=== PATIENT | female | born 1995 | race Caucasian/White ===

== ENCOUNTER 2016-12-26 22:48 | Emergency (ER) | payer OTHER ==
[~2016-12-26] VITALS: Ht 160 cm; Wt 54.4 kg
[~2016-12-26 22:48] MED LIST: ALBU-136 IH; BECL0.0458 INH; PRON INH
[2016-12-26 22:59] VITALS: BP 120/78
--- NOTE | 2016-12-27 02:00 | NUR ---
Lauren pike in ED - 12/27/16 at 0212 by [facility] PATIENT LEFT WITHOUT BEING SEEN BY DR. Bal. NO FURTHER CARE PROVIDED FOR PATIENT.
--- NOTE | 2016-12-27 02:31 | NUR ---
AMBULATED TO ER 6
[2016-12-27] MEDS ORDERED: ALBUTEROL SULFATE/IPRATROPIU 3 ML SOL IH ONE ×2 (02:40→04:20)
[2016-12-27] MEDS ORDERED: methylPREDNISolone SS 125 MG in WATER STERILE 2 ML IM ONE (02:40)
--- NOTE | 2016-12-27 02:45 | NUR ---
SOLUMEDROL 125 MG IM GIVEN . RT AT BEDSIDE TI GIVE BREATHIN TREATMENT.
--- NOTE | 2016-12-27 03:05 | NUR ---
VERBALIZED IMPROVEMENT OF BREATHING.
--- NOTE | 2016-12-27 04:27 | NUR ---
ANOTHER BREATHING TREATMENT GIVEN BY RT.
[2016-12-27] MEDS ORDERED: IBUPROFEN 800 MG TAB PO ONE (05:00)
[2016-12-27 05:10] VITALS: BP 107/73
--- NOTE | 2016-12-27 05:10 | NUR ---
Patient discharged with v/s stable. Written and verbal after care instructions given and explained. Patient alert, oriented and verbalized understanding of instructions. Ambulatory with steady gait. All questions addressed prior to discharge. ID band removed. Patient advised to follow up with PMD. Rx of Motrin, Prednisone, and Albuterol inhaler and neb solution given. Patient educated on indication of medication including possible reaction and side effects. Opportunity to ask questions provided and answered.
== END 2016-12-27 05:10 | disposition home or self-care (01) ==
LOC: MED 22:48
DX: J45.901 Unspecified asthma with (acute) exacerbation (principal); Z79.899 Other long term (current) drug therapy; Z91.012 Allergy to eggs; Z91.013 Allergy to seafood; Z91.018 Allergy to other foods
CPT/HCPCS: 71010; 94640; 96372; 99284; J2930; J7620

== ENCOUNTER 2017-07-17 23:37 | Emergency (ER) | payer OTHER ==
[~2017-07-17] VITALS: Ht 160 cm; Wt 55.6 kg
[2017-07-17 23:39] VITALS: BP 123/76
--- NOTE | 2017-07-17 23:47 | NUR ---
TO LOBBY A/W BED, AMB, STABLE, ERMD NOTED
--- NOTE | 2017-07-18 00:15 | NUR ---
PT.AMBULATED TO ER [facility]
--- NOTE | 2017-07-18 00:45 | NUR ---
Dr. Rojas evaluating patient.
[2017-07-18] MEDS ORDERED: diphenhydrAMINE 50 MG/ML VIAL IVP ONE (00:50)
[2017-07-18] MEDS ORDERED: NACL 0.9% 1,000 ML IV ONE (00:50)
[2017-07-18] MEDS ORDERED: methylPREDNISolone SS 125 MG/2 ML VIAL IVP ONE (00:50)
--- NOTE | 2017-07-18 01:00 | NUR ---
22Y/F PT. BIB FAMILY TO ED WITH C/O RASH TO FACE AFTER EATING SHRIMP. BENEDRYL GIVEN AT 1800. AAO X4, AMBULATORY WITH STEDAY GAIT. RESPIRATIONS ROOM AIR, EVEN AND UNLABORED. BL LUNGS CLEAR. FACE RASH NOTED. NO C/O S/SX OF DISTRESS AT THIS TIME. VSS, ER MADE AWARE OF PT. STATUS.
--- NOTE | 2017-07-18 01:07 | NUR ---
Patient transferred to bed 11 for further care. RN evaluating patient at bedside.
--- NOTE | 2017-07-18 03:20 | NUR ---
Patient discharged with v/s stable. Written and verbal after care instructions given and explained. Patient alert, oriented and verbalized understanding of instructions. Ambulatory with steady gait. All questions addressed prior to discharge. ID band removed. Patient advised to follow up with PMD. Rx of BENEDRYL 25 MG, MEDROL 4 MG given. Patient educated on indication of medication including possible reaction and side effects. Opportunity to ask questions provided and answered.
[2017-07-18 03:40] VITALS: BP 109/70
== END 2017-07-18 03:20 | disposition home or self-care (01) ==
LOC: MED 23:37
DX: T78.1XXA Other adverse food reactions, not elsewhere classified, initial encounter (principal); X58.XXXA Exposure to other specified factors, initial encounter; J45.909 Unspecified asthma, uncomplicated
CPT/HCPCS: 96361; 96372; 96374; 96375; 99284; J0171; J1200; J2930; J7030

== ENCOUNTER 2019-02-14 00:03 | Emergency (ER) | payer OTHER ==
[~2019-02-14] VITALS: Ht 160 cm; Wt 61.7 kg
[2019-02-14 00:09] VITALS: BP 116/76
--- NOTE | 2019-02-14 00:17 | NUR ---
PT AMBULATED TO LOBBY WITH MOTHER
--- NOTE | 2019-02-14 00:37 | NUR ---
PT AMBULATED TO BED 8 WITH PARENT
--- NOTE | 2019-02-14 00:40 | NUR ---
PT C/O ASTHMA EXACERBATION. PT STATES THAT HER HOME NEB CORD IS BROKEN, AND PT IS OUT OF ALBUTEROL AT HOME. RR EVEN AND UNLABORED. WHEEZES HEARD UPON INSPIRATION. PT IN NO ACUTE DISTRESS AT THIS TIME. MOTHER AT BEDSIDE. VSS. MEDHX: ASTHMA
--- NOTE | 2019-02-14 00:53 | NUR ---
Dr. Bal examining patient.
[2019-02-14] MEDS ORDERED: ALBUTEROL SULFATE/IPRATROPIU 3 ML SOL IH ONE (00:55)
--- NOTE | 2019-02-14 01:04 | NUR ---
RT AT BEDSIDE FOR TX.
--- NOTE | 2019-02-14 01:22 | NUR ---
Patient discharged with v/s stable. Written and verbal after care instructions given and explained. Patient verbalized understanding. Ambulatory with to home. All questions addressed prior to discharge. Advised to follow up with PMD. PT ACCOMPANIED BY MOTHER.
[2019-02-14 01:26] VITALS: BP 116/76
== END 2019-02-14 01:22 | disposition home or self-care (01) ==
LOC: MED 00:03
DX: J45.901 Unspecified asthma with (acute) exacerbation (principal); Z91.013 Allergy to seafood; Z79.899 Other long term (current) drug therapy
CPT/HCPCS: 94640; 99283; J7620

== ENCOUNTER 2019-06-03 18:54 | Emergency (ER) | payer OTHER ==
[~2019-06-03] VITALS: Ht 165.1 cm; Wt 60.8 kg
[2019-06-03 18:55] VITALS: BP 100/66
--- NOTE | 2019-06-03 18:56 | NUR ---
Patient BIBA ALS, transferred to bed 1. RN evaluating patient at bedside.
--- NOTE | 2019-06-03 19:07 | NUR ---
24 Y/O F BIBA FOR SOB. PT HAS ASTHMA, IS OUT OF MEDICATION. PT WAS GIVEN BREATHING TX IN AMBULANCE, OXYGEN LEVEL 100% ROOM AIR. PT LUNG SOUNDS CLEAR THROUGHOUT. PT STATES SHE IS BREATHNIG BETTER, HAS A HOOD 8/10. PT ON MONITOR, POSITIONED HIGH FOWLERS. NKA
--- NOTE | 2019-06-03 19:11 | NUR ---
REPORT RECEIVED FROM SID CHEN.
--- NOTE | 2019-06-03 19:11 | NUR ---
GAVE REPORT TO SID RIVAS FOR CHANGE OF SHIFT.
[2019-06-03] MEDS ORDERED: ALBUTEROL SULFATE/IPRATROPIU 3 ML SOL IH ONE (19:50)
[2019-06-03] MEDS ORDERED: ALBUTEROL 0.083% 2.5 MG/3 ML NEBU INH ONE (19:50)
[2019-06-03] MEDS ORDERED: predniSONE 20 MG TAB PO ONE (19:50)
--- NOTE | 2019-06-03 20:05 | NUR ---
FLU SWAB COLLECTED AND SENT TO LAB. RT. AT BEDSIDE FOR TREATMENT.
[2019-06-03] MEDS ORDERED: cefTRIAXone 1,000 MG in LIDOCAINE MPF 1% 2.1 ML IM ONE (20:40)
[2019-06-03] MEDS ORDERED: LIDOCAINE MPF 1% 5 ML ONE (20:43)
[2019-06-03] MEDS ORDERED: cefTRIAXone 1,000 MG VIAL ONE (20:43)
[2019-06-03 21:30] VITALS: BP 102/79
--- NOTE | 2019-06-03 21:30 | NUR ---
Patient discharged with v/s stable. Written and verbal after care instructions given and explained. Patient alert, oriented and verbalized understanding of instructions. Ambulatory with steady gait. All questions addressed prior to discharge. ID band removed. Patient advised to follow up with PMD. Rx of ALBUTEROL; AZITHROMYCIN; PREDNISONE given. Patient educated on indication of medication including possible reaction and side effects. Opportunity to ask questions provided and answered.
== END 2019-06-03 21:30 | disposition home or self-care (01) ==
LOC: MED 18:54
DX: J45.901 Unspecified asthma with (acute) exacerbation (principal); J18.9 Pneumonia, unspecified organism; Z79.899 Other long term (current) drug therapy
CPT/HCPCS: 71045; 87804; 94640; 96372; 99284; J0696; J2001; J7512; J7613; J7620; Q0092

== ENCOUNTER 2020-05-02 19:59 | Emergency (ER) | payer OTHER ==
[~2020-05-02] VITALS: Ht 165.1 cm; Wt 61.2 kg
[2020-05-02 20:14] VITALS: BP 130/81
--- NOTE | 2020-05-02 20:14 | NUR ---
C/O ASTHMA ATTACK X 1HR. LUNG SOUNDS ARE WHEEZING THROUGHOUT DURING EXPIRATORY. NO RESP DISTRESS NOTED. EQUAL CHEST RISE AND FALL. NO SOB. NO LABORED BREATHING. SPO2 IS 99% RA. VSS. A&O X4. SKIN COLOR NORMAL FOR ETHNICITY. NKDA. PMH: ASTHMA, EZCEMA.
--- NOTE | 2020-05-02 20:45 | NUR ---
SEEN AND EXAMINED BY ARELIS WITH ORDERS , CARRIED OUT
[2020-05-02] MEDS ORDERED: predniSONE 20 MG TAB PO ONE (20:50)
[2020-05-02] MEDS ORDERED: ALBUTEROL SULFATE/IPRATROPIU 3 ML SOL IH ONE ×3 (20:50→22:10)
--- NOTE | 2020-05-02 20:50 | NUR ---
MEDICATED PER ERMDS ORDER, TOLERATED WELL.
--- NOTE | 2020-05-02 21:48 | NUR ---
RT OUTSIDE IN THE TENT.
--- NOTE | 2020-05-02 22:54 | NUR ---
RT AT THE TENT FOR ANOTHER BREATHING TREATMENT.
[2020-05-02 23:16] VITALS: BP 130/81
--- NOTE | 2020-05-02 23:16 | NUR ---
Patient discharged with v/s stable. Written and verbal after care instructions given and explained. Patient alert, oriented and verbalized understanding of instructions. Ambulatory with steady gait. All questions addressed prior to discharge. ID band removed. Patient advised to follow up with PMD. Rx of PREDNISONE AND ALBUTEROL given. Patient educated on indication of medication including possible reaction and side effects. Opportunity to ask questions provided and answered.
== END 2020-05-02 23:16 | disposition home or self-care (01) ==
LOC: MED 19:59
DX: J45.901 Unspecified asthma with (acute) exacerbation (principal); Z79.899 Other long term (current) drug therapy; Z91.012 Allergy to eggs; Z91.013 Allergy to seafood; Z91.018 Allergy to other foods
CPT/HCPCS: 94640; 99284; J7512

== ENCOUNTER 2020-07-05 23:30 | Emergency (ER) | payer OTHER ==
[~2020-07-05] VITALS: Ht 157.5 cm; Wt 59.9 kg
[2020-07-05 23:34] VITALS: BP 128/71
--- NOTE | 2020-07-05 23:39 | NUR ---
PT AMBULATED TO BED #12
[2020-07-05] MEDS ORDERED: ALBUTEROL HFA MDI 90 MCG/ACTUATION 8 GM INH ONE (23:55)
[2020-07-05] MEDS ORDERED: methylPREDNISolone SS 125 MG in WATER STERILE 2 ML IV ONE (23:55)
[2020-07-06] MEDS ORDERED: methylPREDNISolone SS 125 MG in WATER STERILE 2 ML IM ONE (00:05)
[2020-07-06] MEDS ORDERED: WATER STERILE 10 ML MC ONE (00:06)
[2020-07-06] MEDS ORDERED: methylPREDNISolone SS 125 MG/2 ML VIAL ONE (00:06)
--- NOTE | 2020-07-06 00:06 | NUR ---
Respiratory Therapist at bedside for respiratory intervention.
[2020-07-06 00:15] VITALS: BP 128/71
--- NOTE | 2020-07-06 00:26 | NUR ---
see complete assessment.
[2020-07-06] MEDS ORDERED: ALBU0.0912 INH ×2 (00:40→02:01)
[2020-07-06] MEDS ORDERED: BUDE1AER2 IH ×2 (00:40→02:01)
[2020-07-06] MEDS ORDERED: PRED20TA5 PO ×2 (00:40→02:01)
[2020-07-06] MEDS ORDERED: PRON INH ×2 (00:40→02:01)
--- NOTE | 2020-07-06 00:59 | NUR ---
Patient discharged with v/s stable. Written and verbal after care instructions given and explained. Patient alert, oriented and verbalized understanding of instructions. Ambulatory with steady gait. All questions addressed prior to discharge. ID band removed. Patient advised to follow up with PMD. Rx of albuterol, symbicort, prednisone given. Patient educated on indication of medication including possible reaction and side effects. Opportunity to ask questions provided and answered.
== END 2020-07-06 00:59 | disposition home or self-care (01) ==
LOC: MED 23:30
DX: J45.901 Unspecified asthma with (acute) exacerbation (principal); L30.9 Dermatitis, unspecified; Z79.899 Other long term (current) drug therapy
CPT/HCPCS: 96372; 99283; J2930

== ENCOUNTER 2020-11-07 23:04 | Emergency (ER) | payer OTHER ==
[~2020-11-07] VITALS: Ht 162.6 cm; Wt 74.4 kg
[~2020-11-07 23:04] MED LIST changes: +ALBU-118 IH; -ALBU-136 IH; +ALBU0.0912 INH; +BUDE1AER2 IH; +PRED20TA5 PO
[2020-11-07 23:18] VITALS: BP 121/75
--- NOTE | 2020-11-08 01:44 | NUR ---
pt ambulated to bed #8
--- NOTE | 2020-11-08 01:57 | NUR ---
25/F PATIENT BIB SELF FOR C/O RASH IN FACE X 3 DAYS. PER PATIENT TRIED NEW ECZEMA CREAM AND FEELS "ITCHYNESS." PER PATIENT ALSO HAS L EAR PAIN 10/10 AND THINKS SHE HAS AN EAR INFECTION. MEDHX: ECZEMA, ASTHMA NKDA
--- NOTE | 2020-11-08 02:42 | NUR ---
DR. GERBER AT BEDSIDE EXAMINING PATIENT
[2020-11-08] MEDS ORDERED: ACETAMINOPHEN EXTRA STRENGTH 500 MG TAB PO ONE (02:50)
[2020-11-08] MEDS ORDERED: IBUPROFEN 400 MG TAB PO ONE (02:50)
[2020-11-08] MEDS ORDERED: OFLO5SOL LEFT EYE (03:17)
[2020-11-08] MEDS ORDERED: VALA1TAB40 PO (03:17)
[2020-11-08 03:55] VITALS: BP 118/72
--- NOTE | 2020-11-08 03:55 | NUR ---
Patient discharged with v/s stable. Written and verbal after care instructions given and explained. Patient alert, oriented and verbalized understanding of instructions. Ambulatory with steady gait. All questions addressed prior to discharge. ID band removed. Patient advised to follow up with PMD. Rx of OFLOXACIN, VALACYCLOVIR given. Patient educated on indication of medication including possible reaction and side effects. Opportunity to ask questions provided and answered.
== END 2020-11-08 03:55 | disposition home or self-care (01) ==
LOC: MED 23:04
DX: B00.0 Eczema herpeticum (principal); J45.909 Unspecified asthma, uncomplicated; Z79.899 Other long term (current) drug therapy
CPT/HCPCS: 99283

== ENCOUNTER 2020-11-23 14:43 | Emergency (ER) | payer OTHER ==
[~2020-11-23] VITALS: Ht 162.6 cm; Wt 60.3 kg
[~2020-11-23 14:43] MED LIST changes: +OFLO5SOL LEFT EYE; +VALA1TAB40 PO
[2020-11-23 15:20] VITALS: BP 118/81
--- NOTE | 2020-11-23 16:54 | NUR ---
PT CURRENTLY RESTING IN BED CURRENTLY. PT VITAL SIGNS STABLE. BED IN LOWEST POSITION WITH SIDERAIL X1 UP. BED LOCK ON.
--- NOTE | 2020-11-23 16:58 | NUR ---
25 Y/O F BIB SELF FROM HOME, C/O ABD PAIN, N&V WITH DYSURIA FOR 3 DAYS AND HAS WORSENED OVER TIME. PT STATES PAIN HAS RADIATED TO LOWER BACK. PT POSITIVE PAIN ON CVA. DENIES SOB, HEMATURIA, DIARRHEA, COUGH, FEVER OR CP. CONSTIPATION, LAST BM: THIS MORNING WAS PAINFUL. PMH: ASTHMA, ECZEMA NKA MED: DENIES
--- NOTE | 2020-11-23 17:21 | NUR ---
URINE WALKED OVER TO LAB
[2020-11-23 17:36] LABS: APPEARANCE,URINE HAZY (CLEAR); BILIRUBIN,URINE 2+ (NEGATIVE); BLOOD, URINE NEGATIVE (NEGATIVE); COLOR,URINE YELLOW (YELLOW); LEUKOCYTE ESTERASE ,URINE NEGATIVE (NEGATIVE); NITRITE, URINE NEGATIVE (NEGATIVE); UGLUCOSE TRACE (NEGATIVE)
[2020-11-23] MEDS ORDERED: MORPHINE SULFATE 2 MG/ML SYR IVP ONE (18:30)
[2020-11-23 18:57] LABS: HEMATOCRIT 37.4 % (36-48); HEMOGLOBIN 12.3 g/dL (12.0-16.0); MEAN CORPUSCULAR HEMOGLOBIN 29 pg (27-31); MEAN CORPUSCULAR HGB CONC 33 g/dL (33-37); MEAN CORPUSCULAR VOLUME 88.3 fL (80-94); PLATELET COUNT (AUTO) 512 K/uL (140-450); RED BLOOD CELL COUNT(AUTO) 4.23 MIL/uL (4.20-5.40); RED CELL DISTRIBUTION WIDTH 13.1 % (11.6-13.7); WHITE BLOOD COUNT (AUTO) 22.6 K/uL (4.8-10.8)
[2020-11-23 19:15] LABS: ALBUMIN 3.4 g/dL (3.4-5.0); ANION GAP 13.1 (8-16); CARBON DIOXIDE 26.9 mmol/L (21-32); CREATININE 0.7 mg/dL (0.6-1.3); TOTAL BILIRUBIN 0.6 mg/dL (0.0-1.0)
[2020-11-23 19:20] LABS: EOSINOPHILS % (MANUAL) 2 % (0-4); LYMPHOCYTES % (MANUAL) 10 % (20-46); MONOCYTES % (MANUAL) 2 % (5-12)
--- NOTE | 2020-11-23 19:20 | NUR ---
ISH SWAB COMPLETED AND TAKEN TO LAB.
--- NOTE | 2020-11-23 19:36 | NUR ---
REPORT GIVEN TO LUIS RN, TRANSFER OF CARE AT THIS TIME
[2020-11-23] MEDS ORDERED: diphenhydrAMINE 50 MG/ML VIAL IVP ONE (20:05)
--- NOTE | 2020-11-23 20:40 | NUR ---
Lauren pike in EDM - 11/23/20 at 2057 by NATALEE REPOSITIONED PT. FOR COMFORT. CHANGED DIAPER. AND COLLECTED URINE SAMPLE
--- NOTE | 2020-11-23 20:45 | NUR ---
PT. IS SITTING UPRIGHT ON BED WITH MOTHER AT BEDSIDE. VOICES NO COMPLAINTS AT THIS TIME.
--- NOTE | 2020-11-23 21:51 | NUR ---
ULTRASOUND AT BEDSIDE
[2020-11-23] MEDS ORDERED: ACETAMINOPHEN 325 MG TAB ONE (23:07)
[2020-11-23] MEDS ORDERED: ACETAMINOPHEN 325 MG TAB PO ONE (23:10)
[2020-11-23] MEDS ORDERED: KETOROLAC 15 MG/ML VIAL IVP ONE (23:30)
[2020-11-23] MEDS ORDERED: MORPHINE SULFATE 4 MG/ML SYR IVP ONE (23:30)
[2020-11-24] MEDS ORDERED: HYDR-5080 PO (01:09)
[2020-11-24 01:39] VITALS: BP 98/63
== END 2020-11-24 01:39 | disposition home or self-care (01) ==
LOC: MED 14:43
DX: R19.00 Intra-abdominal and pelvic swelling, mass and lump, unspecified site (principal); R10.31 Right lower quadrant pain; Z20.822 Contact with and (suspected) exposure to COVID-19; J45.909 Unspecified asthma, uncomplicated; Z79.899 Other long term (current) drug therapy
CPT/HCPCS: 36415; 71045; 74177; 76856; 80053; 81003; 81025; 82150; 83690; 85025; 87086; 87426; 93976; 96374; 96375; 96376; 99285; J1200; J1885; J2270; Q9967

== ENCOUNTER 2020-12-04 20:11 | Inpatient (IN) | payer OTHER, SELFPAY ==
[~2020-12-04] VITALS: Ht 165.1 cm; Wt 61.2 kg
[~2020-12-04 20:11] MED LIST changes: +HYDR-5080 PO
[2020-12-04 20:40] VITALS: BP 108/53
--- NOTE | 2020-12-04 20:40 | NUR ---
TO BED AMBULATORY
--- NOTE | 2020-12-04 20:47 | NUR ---
PT AMBULATED TO BED 12
--- NOTE | 2020-12-04 21:08 | NUR ---
25 YO F BIB SELF WITH C/C OF ABD PAIN 10/10 X2DAYS, SHARP AND PRESSURE LIKE. PT STATED SHE HAS 2 TUMORS ON BILAT SIDES OF ABD. PT STATED USUALLY PAIN COMES AND GOES, THIS TIME IT STAYED. BOWEL SOUNDS X4 QUADS, SOFT AND TENDER. BED LPOCKED IN LOWEST POSITION, SIDE RAILS X1. ALL NEEDS MET AT THIS TIME. PT UNABLE TO GIVE URINE AT THIS TIME. HX: ASTHMA RX: ALBUTEROL ALLERG: SEAFOOD AND EGGS.
[2020-12-04] MEDS ORDERED: KETOROLAC 30 MG/ML VIAL IM ONE (21:15)
--- NOTE | 2020-12-04 21:16 | NUR ---
PT STATED SHE IS UNABLE TO GIVE URINE FOR PREG TEST FOR TORADOL INJ. PT STATED SHE IS NOT .
--- NOTE | 2020-12-04 21:25 | NUR ---
PT STATED LAST TIME SHE WAS GIVEN MORPHINE FOR PAIN. EXPLAINED TO PT IF TORADOL DOES NOT WORK I WILL LET THE ERMD KNOW AND WE CAN GO FROM THERE.
--- NOTE | 2020-12-04 21:29 | NUR ---
LAB AT BEDSIDE.
[2020-12-04 22:04] LABS: HEMATOCRIT 35.1 % (36-48); HEMOGLOBIN 11.6 g/dL (12.0-16.0); MEAN CORPUSCULAR HEMOGLOBIN 29 pg (27-31); MEAN CORPUSCULAR HGB CONC 33 g/dL (33-37); MEAN CORPUSCULAR VOLUME 86.7 fL (80-94); PLATELET COUNT (AUTO) 706 K/uL (140-450); RED BLOOD CELL COUNT(AUTO) 4.05 MIL/uL (4.20-5.40); RED CELL DISTRIBUTION WIDTH 12.8 % (11.6-13.7); WHITE BLOOD COUNT (AUTO) 17.5 K/uL (4.8-10.8)
--- NOTE | 2020-12-04 22:14 | NUR ---
PT IS SLEEPING EQUAL RISE AND FALL OF CHEST WALL. PT IN STABLE CONDITION. OPENS EYES TO SOUND. ALL NEEDS MET AT THIS TIME. BED LOKCED IN LOWEST POSITION. SIDE RAILS X1.
--- NOTE | 2020-12-04 22:21 | NUR ---
PT UNABLE TO GIVE URINE, GAVE MORE WATER.
--- NOTE | 2020-12-04 22:22 | NUR ---
ARELIS CERDA AT BEDSIDE.
[2020-12-04 22:23] LABS: ALBUMIN 3.1 g/dL (3.4-5.0); ANION GAP 15.6 (8-16); CARBON DIOXIDE 27.1 mmol/L (21-32); CREATININE 0.8 mg/dL (0.6-1.3); POTASSIUM 3.7 mmol/L (3.5-5.1)
[2020-12-04 22:34] LABS: LYMPHOCYTES % (MANUAL) 13 % (20-46); MONOCYTES % (MANUAL) 1 % (5-12)
--- NOTE | 2020-12-04 22:51 | NUR ---
PT UNABLE TO GIVE URINE, ERMD MADE AWARE.
[2020-12-04] MEDS ORDERED: MORPHINE SULFATE 10 MG/ML VIAL IVP ONE (22:55)
--- NOTE | 2020-12-04 23:04 | NUR ---
UNABLE TO START IV FOR MEDICATION. APPLIED WARM PACK TO HAND. WILL RECHECK.
--- NOTE | 2020-12-04 23:40 | NUR ---
UNABLE TO GAIN IV ACCESS. PER DR. CERDA MORPHINE 6MG IV CHANGED ROUTE TO IM.
[2020-12-04] MEDS ORDERED: ALBUTEROL 0.083% 2.5 MG/3 ML NEBU INH ONE ×2 (23:45)
--- NOTE | 2020-12-04 23:56 | NUR ---
RT AT BEDSIDE FOR BREATHING TX.
--- NOTE | 2020-12-05 00:15 | NUR ---
US AT BEDSIDE.
--- NOTE | 2020-12-05 00:58 | NUR ---
PT IS SLEEPING, EQUAL RISE AND FALL OF CHEST WALL. VSS. OPENS EYES TO SOUND. BED LOCKED IN LOWEST POSITION, SIDE RAILS X2.
--- NOTE | 2020-12-05 01:47 | NUR ---
PT IS SLEEPING, EQUAL RISE AND FALL OF CHEST WALL. VSS. OPENS EYES TO SOUND. BED LOCKED IN LOWEST POSITION, SIDE RAILS X2.
--- NOTE | 2020-12-05 01:55 | NUR ---
SPOKE TO EVELIN FROM US, STATED THAT US WAS TAKEN IT JUST NEEDS TO BE REVIEWED FOR A REPORT.
--- NOTE | 2020-12-05 03:17 | NUR ---
ARELIS RICE AWARE OF VS. RECEIVED ORDER TO GIVE 1L BOLUS. ORDERS CARRIED OUT.
[2020-12-05] MEDS ORDERED: NACL 0.9% 1,000 ML IV ONE ×2 (03:25→05:10)
--- NOTE | 2020-12-05 03:40 | NUR ---
ERMD AT BEDSIDE.
[2020-12-05 03:58] LABS: HEMATOCRIT 35.2 % (36-48); HEMOGLOBIN 11.7 g/dL (12.0-16.0)
[2020-12-05] MEDS ORDERED: MORPHINE SULFATE 4 MG/ML SYR IVP ONE (04:55)
[2020-12-05] MEDS ORDERED: ALBUTEROL 0.083% 2.5 MG/3 ML NEBU INH ONE ×2 (04:55→06:08)
[2020-12-05] MEDS ORDERED: MORPHINE SULFATE 4 MG/ML SYR ONE (05:01)
[2020-12-05] MEDS ORDERED: ONDANSETRON 4 MG/2 ML VIAL IVP ONE (05:15)
--- NOTE | 2020-12-05 05:15 | NUR ---
nikki collected and walked to lab.
--- NOTE | 2020-12-05 05:39 | NUR ---
called RT jarrett for breathing tx. stated he will be down shortly.
--- NOTE | 2020-12-05 05:43 | NUR ---
PT IS SLEEPING, EQUAL RISE AND FALL OF CHEST WALL. VSS. OPENS EYES TO SOUND. BED LOCKED IN LOWEST POSITION, SIDE RAILS X2.
--- NOTE | 2020-12-05 06:29 | NUR ---
PT IS SLEEPING, EQUAL RISE AND FALL OF CHEST WALL. VSS. OPENS EYES TO SOUND. BED LOCKED IN LOWEST POSITION, SIDE RAILS X2.
[2020-12-05] MEDS ORDERED: LORazepam 2 MG/ML VIAL IVP PRN (07:10)
--- NOTE | 2020-12-05 07:12 | NUR ---
report given to tom ortiz. transfer of care at this time.
--- NOTE | 2020-12-05 07:34 | NUR ---
PATIENT SLEEPING, ON BEDSIDE PROGRAMMER OR ANALYST. OPENS EYES TO SOUND. BED LOCKED IN LOWEST POSITION, SIDE RAILS X2.
[2020-12-05] MEDS: NACL 0.9% 1,000 ML IV SCH ×2 (08:09→14:20)
--- NOTE | 2020-12-05 08:17 | NUR ---
Spoke with patients mom Sirisha and was given an update on patient.
--- NOTE | 2020-12-05 09:50 | NUR ---
Patient c/o 10/10 pain and nausea, medicated per PRN order.
[2020-12-05] MEDS: MORPHINE SULFATE 2 MG/ML SYR IVP PRN ×3 (09:58→20:23)
[2020-12-05] MEDS: ONDANSETRON 4 MG/2 ML VIAL IVP PRN ×2 (10:02→14:05)
--- NOTE | 2020-12-05 11:32 | NUR ---
Patient stating pain has returned, Dr. Corrales paged to be notified.
[2020-12-05] MEDS: HYDROcodone/APAP 10/325 MG 1 TAB TAB PO PRN ×2 (12:09→18:08)
--- NOTE | 2020-12-05 12:15 | NUR ---
PT REQUESTING BREATHING TX. RT HAS BEEN INFORMED
--- NOTE | 2020-12-05 14:00 | NUR ---
ESVIN COLLECTED AND GIVEN TO ZORAIDA IN LAB.
--- NOTE | 2020-12-05 14:11 | NUR ---
PT IS REQUESTING A BREATHING TREATMENT AND STATES THAT SHE FEELS LIKE SHE IS HAVING TROUBLE BREATHING. NO SIGNS OF RESPIRATORY DISTRESS. PT ASSISTED TO RESTROOM USING W/C AND PT WALKED BACK WITH STEADY GAIT. SHEETS WERE CHANGED. PT PLACED BACK ONTO MONITOR AND CONNECTED BACK TO IV FLUIDS.
[2020-12-05 14:30] LABS: APPEARANCE,URINE CLEAR (CLEAR); BILIRUBIN,URINE 2+ (NEGATIVE); BLOOD, URINE 3+ (NEGATIVE); COLOR,URINE YELLOW (YELLOW); LEUKOCYTE ESTERASE ,URINE NEGATIVE (NEGATIVE); NITRITE, URINE POSITIVE (NEGATIVE); UGLUCOSE TRACE (NEGATIVE)
[2020-12-05 14:44] LABS: RBC,URINE 11-20 (MOD) /HPF (0-5); WBC,URINE 0-5 /HPF (0-5)
[2020-12-05 14:51] LABS: BARBITURATE, URINE NEGATIVE ng/ml (NEG <=200); BENZODIAZEPINE, URINE NEGATIVE ng/mL (NEG <=200); CANNABINOID, URINE NEGATIVE ng/mL (NEG <=50); COCAINE, URINE NEGATIVE ng/mL (NEG <=300); OPIATE, URINE POSITIVE ng/mL (NEG <=2000); PHENCYCLIDINE SCREEN,URINE NEGATIVE ng/mL (NEG <=25)
--- NOTE | 2020-12-05 16:09 | NUR ---
Patient will be admitted to care of Dr. Reardon. Admited to Med/Surg. Will go to room 120A. Belongings list completed. Report to
--- NOTE | 2020-12-05 16:10 | NUR ---
RECEIVED PATIENT REPORT FROM ER NURSE OVER THE PHONE. AWAITING FOR PATIENT'S ARRIVAL TO THE UNIT.
--- NOTE | 2020-12-05 16:19 | NUR ---
PATIENT HAS BEEN SCREENED AND CATEGORIZED LOW NUTRITION RISK. PATIENT WILL BE SEEN WITHIN 7 DAYS OF ADMISSION. 12/11/[address]
[2020-12-05 16:20] VITALS: BP 101/62
--- NOTE | 2020-12-05 16:20 | NUR ---
RECEIVED PATIENT FROM ER NURSE. PT WAS ADMITTED FOR HEMORRHAGIC CYSTS. PT IS AOX4, ABLE TO MAKE NEEDS KNOWN. RESPIRATIONS EVEN AND UNLABORED. ON ROOM AIR AND NO RESPIRATORY DISTRESS NOTED. SKIN IS WARM, DRY, AND INTACT. HAS DRY SKIN IN SOME AREAS OF HER BODY DUE TO HER ECZEMA. ABD IS SOFT, ROUND, AND TENDER. NO REBOUND OR GUARDING. BOWEL SOUNDS ACTIVE IN ALL FOUR QUADRANTS. COMPLAINS OF ABDOMINAL PAIN OF 6/10. WILL MEDICATE WITH PAIN MEDS ORDERED. PLAN OF CARE DISCUSSED. SAFETY PRECAUTIONS IN PLACE. BED IN LOW POSITION. CALL LIGHT WITHIN REACH. WILL CONTINUE TO MONITOR.
--- NOTE | 2020-12-05 16:46 | NUR ---
PATIENT COMPLAINED OF ANXIETY. ADMINISTERED PRN ATIVAN PER MD ORDERED.
[2020-12-05] MEDS ORDERED: ALBUTEROL SULFATE/IPRATROPIU 3 ML SOL IH ONE (16:53)
--- NOTE | 2020-12-05 18:08 | NUR ---
PATIENT COMPLAINED OF ABD PAIN 01/04. ADMINISTERED PRN PAIN MEDICATIONS PER MD ORDERED.
--- NOTE | 2020-12-05 19:30 | NUR ---
RECEIVED REPORT FROM CASANDRA FONTANA AT BEDSIDE FOR CONTINUITY OF CARE, PT IN STABLE CONDITION.
[2020-12-05 20:00] VITALS: BP 111/63
--- NOTE | 2020-12-05 20:00 | NUR ---
PT IN BED HOB UP 45% SHE IS ON ROOM AIR AND HAS A RIGHT HAND 22G RUNNING NORMAL SALINE AT 125MLS/HR. V/S FOLLOWS: T 99.8 P 116 R 20 B/P 111/63 02 96% ON ROOM AIR. PT REQUESTING PAIN MEDS AND BREATHING TREATMENT.
--- NOTE | 2020-12-05 20:30 | NUR ---
RT WAS AT BEDSIDE, RT CONCERNED REGARDING ELEVATED HEART RATE, PT WAS ALSO 93% ON ROOM AIR. MORPHINE GIVEN FOR C/O SEVERE PAIN . NEB TREATMENT TO BE GIVEN WHEN HEART RATE GOES DOWN.
--- NOTE | 2020-12-05 22:00 | NUR ---
ROUNDS DONE PT ASLEEP. NO S/S OF PAIN OR DISTRESS NOTED. IV FLUIDS OF NORMAL SALINE RUNNING AT 125MLS/HR.
--- NOTE | 2020-12-05 23:00 | NUR ---
PT AGAIN REQUESTING DUE NEB TREATMENT WHICH IS BEING GIVEN TO HER, PT REQUESTED MORE PAIN MEDICATIONS BUT NOTHING PRN IS DUE , WILL MONITOR PT AFTER PT HAS NEB TREATMENT. PT MADE AWARE AND ACKNOWLEDGED UNDERSTANDING.
--- NOTE | 2020-12-05 23:00 | NUR ---
ROUND DONE, PT IS ASLEEP AT THIS TIME. WILL CONTINUE TO MONITOR .
[2020-12-06] VITALS: BP 108/60
--- NOTE | 2020-12-06 00:30 | NUR ---
ROUNDS DONE, NORMAL SALINE BAG REPLACED AND FLUIDS CONTINUED ORDERED. PT REMAINS ASLEEP AND ALL UNIVERSAL FALLS PRECAUTIONS IN PLACE.
[2020-12-06] MEDS: NACL 0.9% 1,000 ML IV SCH ×4 (01:37→20:14)
[2020-12-06] MEDS: MORPHINE SULFATE 2 MG/ML SYR IVP PRN ×2 (03:43→22:46)
[2020-12-06 04:00] VITALS: BP 109/57
--- NOTE | 2020-12-06 04:45 | NUR ---
PT C/O OF SEVERE PAIN AND WAS GIVEN IVP MORPHINE V/S FOLLOWS : T 99.3 P 125 R 17 B/P 109/57 02 94%. ALL ORDERED PRECAUTIONS IN PLACE.
[2020-12-06 06:23] LABS: BASOPHILS % (AUTO) 0.1 % (0.0-2.0); EOSINOPHILS % (AUTO) 0.1 % (0.0-4.0); HEMATOCRIT 30.4 % (36-48); LYMPHOCYTES % (AUTO) 4.4 % (20.5-51.1); MEAN CORPUSCULAR HEMOGLOBIN 29 pg (27-31); MEAN CORPUSCULAR HGB CONC 33 g/dL (33-37); MEAN CORPUSCULAR VOLUME 87.6 fL (80-94); MONOCYTES # (AUTO) 0.5 K/uL (0.8-1.0); MONOCYTES % (AUTO) 2.3 % (1.7-9.3); NEUTROPHILS # (AUTO) 20.7 K/uL (1.8-7.7); NEUTROPHILS % (AUTO) 93.1 % (42.2-75.2); PLATELET COUNT (AUTO) 503 K/uL (140-450); RED BLOOD CELL COUNT(AUTO) 3.47 MIL/uL (4.20-5.40); WHITE BLOOD COUNT (AUTO) 22.3 K/uL (4.8-10.8)
[2020-12-06 07:10] LABS: ALBUMIN 2.2 g/dL (3.4-5.0); ANION GAP 11.8 (8-16); CARBON DIOXIDE 24.7 mmol/L (21-32); CREATININE 0.8 mg/dL (0.6-1.3); MAGNESIUM 1.9 mg/dL (1.8-2.4); PHOSPHORUS 2.1 mg/dL (2.5-4.9); POTASSIUM 3.5 mmol/L (3.5-5.1); TOTAL BILIRUBIN 0.7 mg/dL (0.0-1.0)
[2020-12-06 08:00] VITALS: BP 109/62
--- NOTE | 2020-12-06 08:02 | NUR ---
Received report from night nurse. first initial contact with pt. introduced myself as day nurse. Safety precautions are in place. Call light is within reach. Will continue plan of care.
--- NOTE | 2020-12-06 09:40 | NUR ---
PT WAS ASKING FOR PAIN MEDICATION. TOOK VS AND BP WAS 114/65, TX: 121. PT IS NOT ALERT AND HARD TO AROUSE DUE TO PT SLEEPING, RR:18. WILL HOLD MEDICATION AND NOTIFY MD.
--- NOTE | 2020-12-06 09:49 | NUR ---
NOTIFIED DR PERERA ABOUT PT. ASSESSED PT AND ORDERED PLACEMENT OF FOL;EY CATHETER, STOOL SAMPLE AND START OFF ON ABX. WILL CONTINUE PLAN OF CARE.
[2020-12-06] MEDS ORDERED: NACL 0.9% 500 ML IV SCH (09:55)
[2020-12-06] MEDS: HYDROcodone/APAP 10/325 MG 1 TAB TAB PO PRN ×2 (10:13→18:43)
[2020-12-06] MEDS: ONDANSETRON 4 MG/2 ML VIAL IVP PRN ×2 (10:21→22:56)
--- NOTE | 2020-12-06 10:22 | NUR ---
ADMINISTERED PAIN MEDICATION NORCO FOR PAIN 02/03. MD PERERA ORDERED TO HOLD MORPHINE AND GIVE NORCO. BP IS 114/65, MS:121. EDUCATED PT ON MEDICATIONS MOA AND SIDE EFFECTS. PT WAS INFORMED THAT SHE WILL BE REASSESSED FOR PAIN IN ONE HOUR. PT HAS A BED BLANTON TO URINATE. PT IS ACTIVELY DEFECATING AND URINATING . WILL ASSIST HER GET CLEANED UP.
[2020-12-06] MEDS: MEROPENEM 500 MG in NACL 0.9% 50 ML IV SCH ×2 (11:32→20:09)
--- NOTE | 2020-12-06 11:33 | NUR ---
ADMINISTERED MEDICATION PER MD ORDER. EDUCATED PT ON SIDE EFFECTS AND MOA OF MEDICATION. INFUSION IS RUNNING WELL .PT VERBALIZED UNDERSTANDING. SAFETY PRECAUTIONS ARE IN PLACE.WILL CONTINUE TO MONITOR.
[2020-12-06 12:00] VITALS: BP 109/62
[2020-12-06 16:00] VITALS: BP 107/56
--- NOTE | 2020-12-06 16:09 | NUR ---
DC PLANNING: CM MET WITH PATIENTS MOTHER IN THE LOBBY TO DISCUSS CURRENT STATUS AND DC NEEDS. PER NIDIA MARIAJOSE, THE PATIENT LIVES WITH HER IN A SECOND FLOOR APARTMENT. 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 IS ON SSI, HER MOTHER HAS NOT YET ESTABLISHED DUAL DPOA BUT IS HER PRIMARY DECISION MAKER. PATIENT IS INDEPENDENT WITH ADL'S IF SHE IS REMINDED, IS NOT CONSISTENT WITH HER ORAL CARE. THE PATIENT SEES HER PCP EVERY 3-4 MONTHS, HAS NO DME OF H/O HOME HEALTH. ENDORSED TO THE CHARGE NURSE CASSIDY THAT PATIENT IS DD AND THAT HER MOTHER SHOULD BE CONTACTED FOR CONSENTS. PLAN IS TO DC HOME WHEN STABLE, CM WILL FOLLOW FOR NEEDS. Addendum: 12/14/20 at 1312 by Chuyita Coelho CM DC PLANNING: ORDER TO SET UP HOME HEALTH IN ANTICIPATION OF DC. CM SPOKE WITH PATIENTS MOTHER NIDIA, ENDORSED THAT HOME HEALTH WOULD BE ARRANGED WITH AN [facility] CONTRACTED AGENCY. SPOKE WITH SARAH [facility], NO NURSE AVAILABLE. REFERRAL SENT TO [facility], PHONE [phone], FAX [phone]. [facility] IS ABLE TO SEE THE PATIENT THURSDAY, CLINICALS AND AUTH REQUEST FOR HOME HEALTH FAXED TO [facility]. SPOKE WITH DR. BENTLEY, DISCUSSED DANIELLE DRAIN AND ELEVATED WBC'S. DR. PERDOMO ADVANCED DIET FROM FULL LIQUID TO BLAND, NO DC ORDERS YET. CM WILL FOLLOW FOR NEEDS. Addendum: 12/14/20 at 1601 by Chuyita Coelho CM DC PLANNING: LISETH SPOKE WITH JEFFREY AT [facility], AUTH # FOR [facility] INITIAL VISIT AND 9 FOLLOW UP VISITS IS [id number]. LISETH SPOKE WITH SABRINA AT [facility], STATES THEY HAVE TO WAIT FOR AUTH TO SHOW UP ON THEIR PORTAL BUT PLAN FOR PATIENT TO BE SEEN ON THURSDAY. PATIENTS MOTHER ALSO NOTIFIED OF PLAN TO SEE THE PATIENT ON THURSDAY. CM WILL FOLLOW FOR NEEDS.
--- NOTE | 2020-12-06 17:00 | NUR ---
PLACED RILEY CATHETER 16 G NEPALI. PT TOLERATED PROCEDURE WELL. PUSHED 1OCC OF NS TO RILEY CATHETER FOR BALLOON PLACEMENT. EXPLAINED TO PT THE PROCEDURE AND WHY SHE HAD TO HAVE RILEY CATHETER. UA WAS SENT TO LAB ALONG WITH OCCULT BLOOD TEST. PT IS NOT UNDER APPARENT DISTRESS. MOTHER IS AT BEDSIDE. SAFETY PRECAUTIONS ARE IN PLACE AND CALL LIGHT IS WITHIN REACH. WILL CONTINUE TO MONITOR
--- NOTE | 2020-12-06 18:44 | NUR ---
ADMINISTERED NORCO FOR VINAY 10/04. BP 117/70 IA:126. EDUCATED PT ON MEDICATIONS MOA AND SIDE EFFECTS.WILL REASSESS PAIN IN ONE HOUR. PT AND MOTHER VERBALIZED UNDERSTANDING.
[2020-12-06] MEDS: ALBUTEROL SULFATE/IPRATROPIU 3 ML SOL IH PRN ×2 (19:00→23:24)
--- NOTE | 2020-12-06 19:22 | NUR ---
ENDORSED PT TO NIGHT NURSE FOR CONTINUITY OF CARE. PT IS STABLE.
--- NOTE | 2020-12-06 19:24 | NUR ---
RECEIVED REPORT FROM DAY SHIFT NURSE, PT STABLE NO SIGNS OF DISTRESS. ON ROOM AIR
[2020-12-06 20:00] VITALS: BP 107/52
--- NOTE | 2020-12-06 21:55 | NUR ---
PAGED DR. PERERA THROUGH HIS EXCHANGE TO CLARIFY CT SCAN ORDER. DR. CAMP IS THE SURFACE WATER MANAGER DOCTOR. SPOKED WITH DR. CAMP AND STATED TO CHANGE THE CT SCAN OF ABDOMEN/PELVIS WITHOUT CONTRAST.
--- NOTE | 2020-12-06 22:30 | NUR ---
PATIENT REFUSED TO GO TO CT SCAN TONIGHT FOR THE CT OF ABD/PELVIS ORDERED BY . PT REQUESTED TO DO THE CT SCAN IN AM.
--- NOTE | 2020-12-06 22:46 | NUR ---
GAVE PRN MORPHINE FOR ABD PAIN 02/03. PT TOLERATED WELL
[2020-12-06] MEDS ORDERED: DOXYCYCLINE 100 MG CAP PO SCH (22:55)
--- NOTE | 2020-12-06 23:15 | NUR ---
RECEIVED CALL FROM RN REGARDING PRN BREATHING TREATMENT FOR PT, ARRIVED BEDSIDE AND ADMINISTERED A TREATMENT, PATIENT IS COMFORTABLE AND IN NO RESPIRATORY DISTRESS, WILL CONTINUE TO MONITOR
[2020-12-06] MEDS ORDERED: cefTRIAXone 1,000 MG VIAL ONE (23:33)
--- NOTE | 2020-12-07 00:45 | NUR ---
COLLECTED THE URINE ORDERED FROM THE RILEY PORT FOR CHLAMYDIA/GC AMPLIFICATION AND SENT TO THE LAB.
--- NOTE | 2020-12-07 00:52 | NUR ---
COLLECTED URINE FROM RILEY CATHETER FOR CHLAMYDIA GC SAMPLE.
--- NOTE | 2020-12-07 02:09 | NUR ---
PATIENT ASLEEP, NO SIGNS OF DISTRESS, ON ROOM AIR, SAFETY MEASURES IMPLEMENTED.
[2020-12-07] MEDS: NACL 0.9% 1,000 ML IV SCH ×3 (02:23→23:10)
[2020-12-07] MEDS: ACETAMINOPHEN 325 MG TAB PO PRN (02:57)
--- NOTE | 2020-12-07 03:05 | NUR ---
GAVE PRN TYLENOL FOR HEADACHE. 7/10 PAIN SCALE. PT TOLERATED
[2020-12-07 04:00] VITALS: BP 100/54
[2020-12-07] MEDS: HYDROcodone/APAP 10/325 MG 1 TAB TAB PO PRN (05:28)
--- NOTE | 2020-12-07 06:36 | NUR ---
PATIENT STABLE. NO ACUTE EVENT THROUGHOUT THE NIGHT. PATIENT NOT IN ANY DISTRESS AND NO COMPLAIN AT THIS TIME. ALL NEEDS ATTENDED. WILL ENDORSE THE PATIENT TO THE ONCOMING RN FOR CONTINUITY OF CARE.
--- NOTE | 2020-12-07 07:25 | NUR ---
ENDORSED PATIENT TO SID HAYNES FOR CONTINUITY OF CARE. PATIENT STABLE. SIGNING OFF.
--- NOTE | 2020-12-07 07:30 | NUR ---
RECEIVED REPORT FROM NIGHT NURSE FOR CONTINUITY OF CARE. WILL CONTINUE POC.
[2020-12-07] MEDS: MORPHINE SULFATE 2 MG/ML SYR IVP PRN ×3 (08:06→20:49)
[2020-12-07] MEDS: DOXYCYCLINE 100 MG CAP PO SCH ×2 (08:15→20:50)
[2020-12-07] MEDS: ONDANSETRON 4 MG/2 ML VIAL IVP PRN ×3 (08:20→20:43)
--- NOTE | 2020-12-07 08:28 | NUR ---
ADMINISTERED MEDICATIONS PER MD ORDER. AADMINISTERD 2MG OF MORPHINE FOR PAIN. PT RATED PAIN A 10/10 ON HER ABDOMEN WHICH WAS DESCRIBED BEING SHARP. BP WAS 113/71, SC: 102. PT WAS EDUCATED ON MEDICATIONS MOA AND SIDE EFFECTS. PT VERBALIZED UNDERSTANDING. WILL REASSESS PT IN 30 MINUTES. FLUIDS ARE RUNNING WELL. ASSESSED IV PATENCY AND FOCUSED ASSESSMENT. SAFETY PRECAUTIONS ARE IN PLACE. CALL LIGHT IS WITHIN REACH. WILL CONTINUE TO MONITOR.
--- NOTE | 2020-12-07 09:00 | NUR ---
ASSESSED PAIN. PAIN RAFTED ABDOMINAL PAIN A 4/10. PAIN INTERVENTION WAS EFFECTIVE. WILL CONTINUE TO MONITOR.
[2020-12-07 10:36] LABS: BASOPHILS % (AUTO) 0.1 % (0.0-2.0); EOSINOPHILS % (AUTO) 0.1 % (0.0-4.0); HEMATOCRIT 28.7 % (36-48); HEMOGLOBIN 9.3 g/dL (12.0-16.0); LYMPHOCYTES # (AUTO) 1.2 K/uL (2.5-16.5); LYMPHOCYTES % (AUTO) 6.2 % (20.5-51.1); MEAN CORPUSCULAR HEMOGLOBIN 28 pg (27-31); MEAN CORPUSCULAR HGB CONC 32 g/dL (33-37); MEAN CORPUSCULAR VOLUME 88.2 fL (80-94); MONOCYTES # (AUTO) 0.6 K/uL (0.8-1.0); MONOCYTES % (AUTO) 3.2 % (1.7-9.3); NEUTROPHILS # (AUTO) 17.8 K/uL (1.8-7.7); NEUTROPHILS % (AUTO) 90.4 % (42.2-75.2); PLATELET COUNT (AUTO) 421 K/uL (140-450); RED BLOOD CELL COUNT(AUTO) 3.26 MIL/uL (4.20-5.40); RED CELL DISTRIBUTION WIDTH 13.2 % (11.6-13.7); WHITE BLOOD COUNT (AUTO) 19.7 K/uL (4.8-10.8)
[2020-12-07 10:59] LABS: CARBON DIOXIDE 22.7 mmol/L (21-32); CREATININE 0.5 mg/dL (0.6-1.3)
--- NOTE | 2020-12-07 11:06 | NUR ---
LAB CALLED TO REPORT CRITICAL LAB VALUE OF K+2.7. WILL NOTIFY MD AND PLACE PT ON SEIZURE PRECAUTIONS.
[2020-12-07 11:07] LABS: POTASSIUM 2.7 mmol/L (3.5-5.1)
[2020-12-07] MEDS: ALBUTEROL SULFATE/IPRATROPIU 3 ML SOL IH PRN ×2 (11:09→16:45)
--- NOTE | 2020-12-07 11:09 | NUR ---
NOTIFIED DR. PERERA OF PT'S K+ 2.7 CRITICAL LAB VALUE. WILL AWAIT RESPONSE WITH CONTINUATION OF CARE.
--- NOTE | 2020-12-07 11:15 | NUR ---
PLACED PT ON SEIZURE PRECAUTIONS BY PADDING SIDE RAILS. PT IS SLEEPING AND NOT IN ACUTE DISTRESS. WILL CONTINUE TO MONITOR.
--- NOTE | 2020-12-07 12:40 | NUR ---
CHARGE NURSE CASSIDY CALLED TO PAGE DR. PERERA TO REMIND OF PT'S K+ LEVEL OF 2.7. WILL AWAIT RESPONSE.
--- NOTE | 2020-12-07 13:45 | NUR ---
ROUNDED ON PT. PT IS SLEEPING. WILL CONTINUE TO MONITOR.
[2020-12-07] MEDS ORDERED: POTASSIUM CHLORIDE 40 MEQ, LIDOCAINE MPF 1% 25 MG in NACL 0.9% 250 ML IV SCH (15:00)
--- NOTE | 2020-12-07 15:17 | NUR ---
ADMINISTERED SCHEDULED MEDICATIONS PER MD ORDER. ADMINISTERED MORPHINE 2MG IVP FOR PAIN RATED 10/10 IN HER ABDOMEN WHICH WAS DESCRIBED ACHING AND IT WORSENED WITH MOVEMENT AND IT WAS BETTER WITH PAIN MEDICATION. BP WAS 118/65, TX:110, RR:19. PT AND MOTHER WERE EDUCATED ON MEDICATIONS MOA AND SIDE EFFECTS. PT AND MOTHER VERBALIZED UNDERSTANDING. INFUSION IS RUNNING WELL. IV SITE IS PATENT. SEIZURE PRECAUTIONS ARE IN PLACE. MOTHER IS AT BEDSIDE. CALL LIGHT IS WITHIN REACH. WILL REASSESS PAIN IN 30 MINUTES.
--- NOTE | 2020-12-07 17:00 | NUR ---
DR. PERERA PLACED MD ON REGULAR DIET.
--- NOTE | 2020-12-07 19:25 | NUR ---
RECEIVED REPORT FROM AM NURSE. PATIENT IN BED RESTING. NO S/S OF SOB NOTED. IVF OF NS INFUSING ON THE RAC. NO COMPLAINTS OF PAIN AT THIS TIME. SAFETY MEASURES IN PLACE. CALL LIGHT WITHIN REACH WILL CONTINUE TO MONITOR.
--- NOTE | 2020-12-07 19:30 | NUR ---
ENDORSED PT TO NIGHT NURSE FOR CONTINUITY OF CARE.PT IS STABLE.
[2020-12-07] MEDS: ALBUTEROL SULFATE/IPRATROPIU 3 ML SOL IH SCH (20:34)
--- NOTE | 2020-12-07 23:35 | NUR ---
RECIEVED BEDSIDE REPORT FROM [facility] NURSE [facility] CUST[employer]S DIRECTOR, PT A&OX4, ABLE TO MAKE NEEDS KNOWN AND FOLLOWS COMMANDS, ST ON MONITOR, ON ROOM AIR, AFEBRILE, SKIN WARM DRY AND INTACT, GEN RASH/ECZEMA ALL OVER BODY, PT COMPLAINS OF ABD PAIN, RAC 22 G PIV SALINE LOCKED, LH 22 G PIV INFUSING NS @ 125MLS/HR,, FC IN PLACE DRAINING VIA GRAVITY, NO SIGNS OF ACUTE DISTRESS, SAFETY MEASURES IN PLACE, WILL CONTINUE WITH CURRENT POC
--- NOTE | 2020-12-07 23:35 | NUR ---
SPOKE TO PT'S MOTHER NIDIA AND INFORMED HER ABOUT PT BEING TRANSFERRED TO ICU FOR CLOSE MONITORING, VERBALIZED UNDERSTANDING
--- NOTE | 2020-12-07 23:40 | NUR ---
TRANSFERED PT TO ICU BED 102 VIA DIANE
[2020-12-08] VITALS (14 sets, daily range): BP systolic 107–126; BP diastolic 61–84
[2020-12-08] MEDS: ALBUTEROL SULFATE/IPRATROPIU 3 ML SOL IH PRN ×3 (00:23→11:23)
[2020-12-08] MEDS: ALBUTEROL SULFATE/IPRATROPIU 3 ML SOL IH SCH ×4 (00:29→19:40)
--- NOTE | 2020-12-08 00:30 | NUR ---
ADMINISTERED [id number] MEDICATION PER MD ORDERS
[2020-12-08] MEDS ORDERED: PIPERACILLIN/TAZOBACTAM 4.5 GM VIAL IV ONE ×2 (00:39→01:52)
[2020-12-08] MEDS: PIPERACILLIN/TAZOBACTAM 4.5 GM in DEXTROSE 5% 100 ML IV SCH ×5 (00:41→23:55)
[2020-12-08] MEDS: MORPHINE SULFATE 2 MG/ML SYR IVP PRN ×2 (01:10→05:43)
[2020-12-08] MEDS: ONDANSETRON 4 MG/2 ML VIAL IVP PRN ×3 (01:10→20:12)
--- NOTE | 2020-12-08 01:10 | NUR ---
PT COMPLAIN OF ABD PAIN PAIN SCALE OF 9 OUT OF 10, ADMINISTERED MORPHINE PER PROTOCL AND ZOFRAN FOR PTS NAUSEATED FEELING
[2020-12-08] MEDS: NACL 0.9% 1,000 ML IV SCH ×2 (01:54→15:21)
[2020-12-08] MEDS ORDERED: metroNIDAZOLE 500 MG/NS PREMIX 100 ML IV SCH (05:00)
--- NOTE | 2020-12-08 05:09 | NUR ---
ADMINISTERED 0600H MEDICATIONS PER MD ORDERS
[2020-12-08] MEDS ORDERED: LIDOCAINE 1% 500 MG/50 ML VIAL ONE (07:01)
[2020-12-08] MEDS ORDERED: BUPIVACAINE-MPF/EPI 0.25% 30 ML VIAL INJ ONE (07:01)
--- NOTE | 2020-12-08 07:26 | NUR ---
REPORT RECEIVED FROM PM SHIFT RN FOR CONTINUITY OF CARE. A&OX3. ST ON MONITOR. ON ROOM AIR. IV SITE RT AC 22G, INTACT, PATENT AND GOOD BLOOD RETURN AND LHAND 22G INFUSING NS 125ML/HR. SKIN WARM AND DRY. RASHES NOTED. CALL LIGHT WITHIN REACH. SAFETY PRECAUTIONS PLACE. WILL CONTINUE TO MONITOR.
--- NOTE | 2020-12-08 07:26 | NUR ---
ENDORSED TO DAY SHIFT RN FOR CONTINUITY OF CARE
[2020-12-08 07:57] LABS: HEMATOCRIT 31.4 % (36-48); HEMOGLOBIN 10.3 g/dL (12.0-16.0); MEAN CORPUSCULAR HEMOGLOBIN 29 pg (27-31); MEAN CORPUSCULAR HGB CONC 33 g/dL (33-37); MEAN CORPUSCULAR VOLUME 86.7 fL (80-94); PLATELET COUNT (AUTO) 453 K/uL (140-450); RED BLOOD CELL COUNT(AUTO) 3.62 MIL/uL (4.20-5.40); RED CELL DISTRIBUTION WIDTH 13.3 % (11.6-13.7)
[2020-12-08 08:23] LABS: ANION GAP 14.8 (8-16); CARBON DIOXIDE 22.2 mmol/L (21-32); CREATININE 0.5 mg/dL (0.6-1.3)
[2020-12-08] MEDS ORDERED: fentaNYL citrate 0.05 MG/ML VIAL ONE ×2 (08:50→08:58)
--- NOTE | 2020-12-08 08:54 | NUR ---
PT TAKEN VIA GURNEY TO OR FOR PROCEDURE
[2020-12-08] MEDS ORDERED: NEOSTIGMINE 1:1000 10 MG/10 ML VIAL ONE ×2 (08:58→12:06)
[2020-12-08] MEDS ORDERED: DESFLURANE 240 ML BTL INH ONE (08:58)
[2020-12-08] MEDS ORDERED: HYDROmorphone 1 MG/ML AMP ONE (08:58)
[2020-12-08] MEDS ORDERED: GLYCOPYRROLATE 0.2 MG/ML VIAL ONE ×3 (08:58→12:06)
[2020-12-08] MEDS ORDERED: DEXAMETHASONE 4 MG/ML VIAL ONE ×2 (08:58→09:09)
[2020-12-08] MEDS ORDERED: SUCCINYLCHOLINE CHLORIDE 200 MG/10 ML VIAL IVP ONE ×2 (08:58→09:09)
[2020-12-08] MEDS ORDERED: PROPOFOL 200 MG/20 ML VIAL IV ONE ×2 (08:58→09:09)
[2020-12-08] MEDS ORDERED: ONDANSETRON 4 MG/2 ML VIAL ONE ×2 (08:58→10:50)
[2020-12-08] MEDS ORDERED: methylPREDNISolone 4 MG TAB PO ONE (09:00)
[2020-12-08] MEDS: DOXYCYCLINE 100 MG CAP PO SCH ×2 (09:00→20:03)
--- NOTE | 2020-12-08 09:00 | NUR ---
PER DR PERDOMO HOLD PO MEDS D/T PT WILL HAVE SURGERY PROCEDURE.
[2020-12-08] MEDS ORDERED: ROCURONIUM 50 MG/5 ML VIAL IV ONE (09:09)
[2020-12-08] MEDS ORDERED: KCL 20 MEQ/WATER INJ PREMIX 200 ML IV SCH (09:30)
[2020-12-08] MEDS ORDERED: POTASSIUM CHL 40 MEQ/ D5-1/2NS 1,000 ML IV SCH (09:30)
[2020-12-08] MEDS ORDERED: HYDROmorphone PFS 2 MG/ML SYR ONE (09:43)
[2020-12-08] MEDS: MORPHINE SULFATE 4 MG/ML SYR IVP PRN ×3 (11:58→23:55)
--- NOTE | 2020-12-08 12:00 | NUR ---
PT RETURNED FROM OR PROCEDURE
--- NOTE | 2020-12-08 12:01 | NUR ---
PT HAS DANIELLE DRAIN ON ABD. 30 ML OF DRAINAGE NOTED.
--- NOTE | 2020-12-08 13:00 | NUR ---
PT'S MOTHER AT BEDSIDE.
[2020-12-08 13:18] LABS: LYMPHOCYTES % (MANUAL) 10 % (20-46); MONOCYTES % (MANUAL) 7 % (5-12)
--- NOTE | 2020-12-08 15:00 | NUR ---
PT HAS EYES CLOSED, RESPIRATIONS EVEN AND UNLABORED. CHEST RISE IS SYMMETRICAL. CALL LIGHT WITHIN REACH. SAFETY PRECAUTIONS IN PLACE. WILL CONTINUE TO MONITOR.
[2020-12-08] MEDS ORDERED: methylPREDNISolone 4 MG TAB PO SCH (15:30)
--- NOTE | 2020-12-08 17:06 | NUR ---
PT HAS EYES CLOSED, RESPIRATIONS EVEN AND UNLABORED. CHEST RISE IS SYMMETRICAL. CALL LIGHT WITHIN REACH. SAFETY PRECAUTIONS IN PLACE. WILL CONTINUE TO MONITOR.
--- NOTE | 2020-12-08 19:20 | NUR ---
RECEIVED PATIENT ON BED, ALERT AND ORIENTED; ON ROOM AIR S02 94%; BREATHING EVEN AND UNLABORED. CARDIACSCOPE SHOWS ON SINU RHYTHM HR 94/MIN. IVF IN PROGRESS NORMAL SALINE AT 125 ML/HR VIA G 22 IV CANNULA ON RIGHT AC; PATENT AND INTACT. ABDOMEN IS SOFT, HAD RECENT ABDOMINAL SURGERY;DRESSING CLEAN AND INTACT WITH DANIELLE DRAIN IN PLACE DRAINING TO SEROSANGUINOUS OUTPUT. WITH RILEY CATH IN SITU TO GRAVITY DRAINAGE BAG, DRAINING TO CLOUDY YELLOW URINE OUTPUT. INTACT.
--- NOTE | 2020-12-08 20:00 | NUR ---
COMPLAINED OF POST PAIN; 10/10 PAIN SCALE; MEDICATED WITH IV MORPHINE AND PATIENT WAS ABLE TO REST AND SLEEP THEREAFTER.
--- NOTE | 2020-12-08 23:55 | NUR ---
C/O POST PAIN AGAIN; 9/10 PAIN SCALE CLAIMED BY THE PATIENT; MEDICATED WITH IV MORPHINE.
[2020-12-09] VITALS: BP 121/82
--- NOTE | 2020-12-09 00:20 | NUR ---
TRANSFERRED TO TELEMETRY UNIT ROOM 119A PER BED IN FAIR CONDITION. ENDORSED TO SID FIGUEROA FOR CONTINUITY OF CARE.
--- NOTE | 2020-12-09 00:25 | NUR ---
REPORT GIVEN BY ICU NURSE IAM. PATIENT IS BACK TO [facility] UNIT AAOX4. NO S/S OF RESPIRATORY DISTRESS. NO COMPLAINTS OF PAIN AT THIS TIME. SAFETY PRECAUTIONS ARE IN PLACE. CALL LIGHT WITHIN REACH.
[2020-12-09] MEDS: NACL 0.9% 1,000 ML IV SCH ×4 (00:30→23:10)
[2020-12-09] MEDS: ALBUTEROL SULFATE/IPRATROPIU 3 ML SOL IH SCH ×4 (01:22→21:15)
[2020-12-09 04:00] VITALS: BP 115/71
--- NOTE | 2020-12-09 04:00 | NUR ---
V/S TAKEN AND RECORDED.
[2020-12-09] MEDS: PIPERACILLIN/TAZOBACTAM 4.5 GM in DEXTROSE 5% 100 ML IV SCH ×3 (05:25→18:29)
--- NOTE | 2020-12-09 05:25 | NUR ---
ZOSYN GIVEN PER MD ORDERED.
--- NOTE | 2020-12-09 07:25 | NUR ---
ENDORSED TO AM RN FOR CONTINUITY OF CARE. PATIENT IS IN STABLE CONDITION.
--- NOTE | 2020-12-09 07:27 | NUR ---
RECEIVED REPORT FROM MUSEUM SPECIALIST RN FOR CONTINUITY OF CARE. PATIENT IS RESTING. NO S/S OF DISTRESS. ALL SAFETY PRECAUTIONS IN PLACE. WILL CONTINUE TO MONITOR.
[2020-12-09 08:00] VITALS: BP 112/67
[2020-12-09] MEDS: DOXYCYCLINE 100 MG CAP PO SCH ×3 (08:43→20:08)
[2020-12-09] MEDS: methylPREDNISolone 4 MG TAB PO ONE ×2 (08:45→09:02)
[2020-12-09] MEDS: MORPHINE SULFATE 4 MG/ML SYR IVP PRN ×3 (08:47→20:08)
[2020-12-09] MEDS: ONDANSETRON 4 MG/2 ML VIAL IVP PRN ×3 (08:55→20:38)
--- NOTE | 2020-12-09 08:55 | NUR ---
PATIENT COMPLAINED OF 10/10 PAIN, BP IS 112/67 AND HR IS 106. ADMINISTERED PRN PAIN MEDICATION. PATIENT ALSO COMPLAINED OF NAUSEA. ADMINISTERED PRN ZOFRAN. ALL SAFETY PRECAUTIONS IN PLACE. WILL CONTINUE TO MONITOR.
--- NOTE | 2020-12-09 09:03 | NUR ---
PATIENT'S TEMPERATURE IS 100F. IMPLEMENTED COOLING MEASURES. SCHEDULED MEDICATIONS HELD PER NPO STATUS. WILL CONTINUE TO MONITOR.
[2020-12-09 12:00] VITALS: BP 101/66
--- NOTE | 2020-12-09 12:00 | NUR ---
ADMINISTERED SCHEDULED MEDICATIONS. PATIENT VERBALIZED UNDERSTANDING. NO S/S OF DISTRESS. ALL SAFETY PRECAUTIONS IN PLACE. WILL CONTINUE TO MONITOR.
--- NOTE | 2020-12-09 13:38 | NUR ---
PATIENT COMPLAINED OF 9/10 PAIN. ADMINISTERED PRN PAIN MEDICATION. ALL SAFETY PRECAUTIONS IN PLACE. WILL CONTINUE TO MONITOR.
--- NOTE | 2020-12-09 15:05 | NUR ---
CHECKED ON PATIENT. PATIENT'S MOTHER IS AT BEDSIDE. NO S/S OF DISTRESS. ALL SAFETY PRECAUTIONS IN PLACE.
--- NOTE | 2020-12-09 17:30 | NUR ---
REMOVED RILEY CATHETER PER DR PERDOMO'S ORDERS.
--- NOTE | 2020-12-09 19:34 | NUR ---
ENDORSED TO TECHNICAL SUPERVISOR NURSE FOR CONTINUITY OF CARE. PT IS STABLE.
--- NOTE | 2020-12-09 19:35 | NUR ---
RECEIVED REPORT FROM AM NURSE. PATIENT IN BED, NO SOB NOTED. IVF OF NS INFUSING WELL ON THE RAC. CALL LIGHT WITHIN REACH.
[2020-12-09 20:00] VITALS: BP 110/70
--- NOTE | 2020-12-09 20:08 | NUR ---
PATIENT COMPLAINED OF SEVERE PAIN 10/10, MEDICATED ORDERED.
--- NOTE | 2020-12-09 20:38 | NUR ---
PATIENT COMPLAINED OF FEELING NAUSEOUS, MEDICATED ORDERED.
[2020-12-10] VITALS: BP 103/61
[2020-12-10] MEDS: PIPERACILLIN/TAZOBACTAM 4.5 GM in DEXTROSE 5% 100 ML IV SCH ×4 (00:22→18:12)
--- NOTE | 2020-12-10 01:30 | NUR ---
ENTERED PTS ROOM TO ADMINISTER SCHEDULED BREATHING TREATMENT, PT NEEDED TO USE THE RESTROOM, ASSISTED THE PT TO AND FROM RESTROOM, BREATHING ADMINISTERED POST RESTROOM
[2020-12-10] MEDS: ALBUTEROL SULFATE/IPRATROPIU 3 ML SOL IH SCH ×4 (01:45→19:00)
[2020-12-10] MEDS: MORPHINE SULFATE 4 MG/ML SYR IVP PRN ×5 (02:14→22:20)
[2020-12-10] MEDS: ONDANSETRON 4 MG/2 ML VIAL IVP PRN ×5 (02:21→22:20)
--- NOTE | 2020-12-10 02:21 | NUR ---
COMPLAINED OF NAUSEA, PRN MEDS GIVEN ORDERED.
--- NOTE | 2020-12-10 02:29 | NUR ---
0214 PATIENT COMPLAINED OF SEVERE ABDOMINAL PAIN, PRN MEDS GIVEN ORDERED.
[2020-12-10 04:00] VITALS: BP 116/74
[2020-12-10] MEDS: NACL 0.9% 1,000 ML IV SCH ×2 (07:10→18:27)
--- NOTE | 2020-12-10 07:30 | NUR ---
PERFORMED FREQ ROUNDING. PT CONDITION IS STABLE. WILL CONTINUE TO MONITOR FOR ANY CHANGES. PT DENIES PAIN AT THIS TIME.
--- NOTE | 2020-12-10 07:30 | NUR ---
RECEIVED CHANGE OF SHIFT REPORT FROM NIGHT NURSE AT BEDSIDE FOR CONTINUITY OF CARE. REVIEWED AND WILL CONTINUE POC.
--- NOTE | 2020-12-10 07:35 | NUR ---
ENDORSED TO AM RN FOR CONTINUITY OF CARE. PT IS STABLE.
[2020-12-10 08:00] VITALS: BP 113/63
[2020-12-10] MEDS ORDERED: FUROSEMIDE 100 MG/10 ML VIAL IV ONE (08:45)
[2020-12-10] MEDS: DOXYCYCLINE 100 MG CAP PO SCH ×2 (09:00→21:13)
[2020-12-10] MEDS ORDERED: methylPREDNISolone 4 MG TAB PO ONE (09:00)
--- NOTE | 2020-12-10 09:02 | NUR ---
ADMINISTERED MORPHINE PRN FOR PAIN /10 IN ABD. ALSO ADMINISTERED ZOFRAN PRN FOR NAUSEA. WILL REASSESS IN 30 MIN.
--- NOTE | 2020-12-10 09:32 | NUR ---
REASSESSED PT FOR PAIN AND NAUSEA. PT DENIES PAIN AND NAUSEA AT THIS TIME. WILL CONTINUE MONITORING PT CONDITION.
--- NOTE | 2020-12-10 11:30 | NUR ---
FREQ ROUNDS PERFORMED. PT TAKING A NAP WITH FAMILY AT BEDSIDE. WILL CONTINUE TO PERFORM FREQ CHECKS.
[2020-12-10 12:00] VITALS: BP 106/63
--- NOTE | 2020-12-10 12:55 | NUR ---
ADMINISTERED MORPHINE PRN FOR ABD PAIN 01/04. ALSO ADMINISTERED ZOFRAN FOR NAUSEA. WILL REASSESS IN 30 MIN.
--- NOTE | 2020-12-10 13:25 | NUR ---
REASSESSED PT FOR PAIN AND NAUSEA. PT DENIED PAIN AND NAUSEA AT THIS TIME. WILL CONTINUE TO MONITOR.
--- NOTE | 2020-12-10 14:30 | NUR ---
DR. PERDOMO AT PATIENT'S BEDSIDE.
--- NOTE | 2020-12-10 15:04 | NUR ---
RECEIVED NEW ORDERS TO ADVANCE DIET TO CLEAR LIQUID.
--- NOTE | 2020-12-10 15:30 | NUR ---
PERFORMED FREQ ROUNDING FOR PT. PT CONDITION IS STABLE AA&OX4, ON RA WITH NO LABORED BREATHING. PT HAS IVF RUNNING PER MD ORDERS. WILL CONTINUE TO MONITOR.
[2020-12-10 16:00] VITALS: BP 105/73
--- NOTE | 2020-12-10 18:23 | NUR ---
ADMINISTERED MORPHINE PRN FOR PAIN 9/10 IN ABD. ASLO ADMINISTERED ZOFRAN PRN FOR NAUSEA. WILL REASSESS PAIN AND NAUSEA IN 30 MIN.
--- NOTE | 2020-12-10 19:19 | NUR ---
ENDORSED CHANGE OF SHIFT REPORT TO NIGHT NURSE. DISCUSSED AND WILL CONTINUE WITH POC. PT CONDITION IS STABLE WITH IVF PER MD ORDER. PT ON RA WITH BREATHING NORMAL AND UNLABORED. SKIN IS NOT INTACT AND DRESSED WITH DANIELLE DRAIN IN PLACE.
--- NOTE | 2020-12-10 19:25 | NUR ---
RECEIVED PT AWAKE ON BED, TOLERABLE PAIN BUT WORSEN WITH MOVEMENT, ABDOMINAL DRESSING DRY AND INTACT COVERED WITH BINDER IN PLACE, WITH DANIELLE IN PLACE TO BULB SUCTION DRAINING PINKISH COLORED FLUID MODERATE AMOUNT, IVF INFUSING WELL, SAT-95% ON ROOM, TACHYCARDIA WITH 112 BPM, ORAL TEMP-98.5, PLAN OF CARE DISCUSSED, SAFETY MEASURES IN PLACE, CALL LIGHT WITHIN REACH.
[2020-12-10 20:00] VITALS: BP 115/69
--- NOTE | 2020-12-10 21:13 | NUR ---
DUE PO MEDICATION ADMINISTERED, PT STARTED ON CLEAR LIQUID DIET WITH APPLE JUICE AND CHICKEN BROTH, ABLE TO FINISHED 1/3 OF IT, ASSIST IN REPOSITIONING FOR COMFORT, MADE AWARE OF NEXT DUE TIME FOR MORPHINE IVP, ALL NEEDS ATTENDED.
[2020-12-11] MEDS: PIPERACILLIN/TAZOBACTAM 4.5 GM in DEXTROSE 5% 100 ML IV SCH ×4 (00:10→18:58)
[2020-12-11] MEDS: ALBUTEROL SULFATE/IPRATROPIU 3 ML SOL IH SCH ×4 (00:37→19:50)
[2020-12-11] MEDS: ONDANSETRON 4 MG/2 ML VIAL IVP PRN ×4 (02:40→22:00)
[2020-12-11] MEDS: MORPHINE SULFATE 4 MG/ML SYR IVP PRN ×2 (02:40→06:33)
--- NOTE | 2020-12-11 02:40 | NUR ---
PT COMPLAINING OF PAIN, MEDICATED PRN WITH MORPHINE AND ZOFRAN, ASSIST IN REPOSITIONING, MONITORED CLOSELY.
[2020-12-11 03:00] VITALS: BP 100/60
--- NOTE | 2020-12-11 05:20 | NUR ---
PT DIAPER CHANGED, VOIDING FREELY, 40ML SEROSANGUINEOUS OUTPUT ON THE DANIELLE DRAIN, DRESSING DRY AND INTACT, PT STATED NOT PASSING GAS BUT BURPING A LOT, MONITORED CLOSELY.
[2020-12-11 06:43] LABS: BASOPHILS # (AUTO) 0.1 K/uL (0.00-0.22); BASOPHILS % (AUTO) 0.4 % (0.0-2.0); EOSINOPHILS % (AUTO) 0.2 % (0.0-4.0); HEMATOCRIT 25.8 % (36-48); HEMOGLOBIN 8.5 g/dL (12.0-16.0); LYMPHOCYTES # (AUTO) 3.1 K/uL (2.5-16.5); LYMPHOCYTES % (AUTO) 15.2 % (20.5-51.1); MEAN CORPUSCULAR HEMOGLOBIN 28 pg (27-31); MEAN CORPUSCULAR HGB CONC 33 g/dL (33-37); MEAN CORPUSCULAR VOLUME 85.7 fL (80-94); MONOCYTES # (AUTO) 1.3 K/uL (0.8-1.0); MONOCYTES % (AUTO) 6.6 % (1.7-9.3); NEUTROPHILS # (AUTO) 15.6 K/uL (1.8-7.7); NEUTROPHILS % (AUTO) 77.6 % (42.2-75.2); PLATELET COUNT (AUTO) 500 K/uL (140-450); RED BLOOD CELL COUNT(AUTO) 3.01 MIL/uL (4.20-5.40); RED CELL DISTRIBUTION WIDTH 13.4 % (11.6-13.7); WHITE BLOOD COUNT (AUTO) 20.1 K/uL (4.8-10.8)
[2020-12-11 06:56] LABS: ANION GAP 9.4 (8-16); CARBON DIOXIDE 29.3 mmol/L (21-32); CREATININE 0.5 mg/dL (0.6-1.3)
--- NOTE | 2020-12-11 07:10 | NUR ---
PT AWAKE, NO SIGNS OF DISTRESS, BEDSIDE REPORT GIVEN TO SID STEWART FOR CONTINUITY OF CARE.
--- NOTE | 2020-12-11 07:10 | NUR ---
RECEIVE REPORT FROM TIRE CHANGER NURSE FOR CONTINUITY OF PATIENT CARE. PATIENT AWAKE AND ALERT. RT AT BEDSIDE DOING BREATHING TREATMENT. ALL SAFETY MEASURES IN PLACE. WILL CONTINUE TO MONITOR.
[2020-12-11] MEDS: NACL 0.9% 1,000 ML IV SCH ×2 (07:37→18:58)
[2020-12-11 07:52] LABS: POTASSIUM 2.7 mmol/L (3.5-5.1)
[2020-12-11 08:00] VITALS: BP 108/62
[2020-12-11] MEDS ORDERED: methylPREDNISolone 4 MG TAB PO ONE (09:00)
--- NOTE | 2020-12-11 09:00 | NUR ---
PATIENT SLEEPING. BREATHING EVEN AND UNLABORED. ALL SAFETY MEASURES IN PLACE. WILL CONTINUE TO MONITOR.
[2020-12-11] MEDS ORDERED: POTASSIUM CHLORIDE 10 MEQ TABER PO SCH ×3 (10:00→17:00)
[2020-12-11] MEDS: DOXYCYCLINE 100 MG CAP PO SCH ×2 (10:26→21:00)
--- NOTE | 2020-12-11 10:30 | NUR ---
PATIENT AWAKE. NO ACUTE DISTRESS NOTED. ALL SAFETY MEASURES IN PLACE. WILL CONTINUE TO MONITOR.
[2020-12-11] MEDS: MORPHINE SULFATE 2 MG/ML SYR IVP PRN ×2 (12:03→22:00)
--- NOTE | 2020-12-11 12:35 | NUR ---
PATIENT NPO EXCEPT FOR MED PER DR. PERDOMO ORDERS. PATIENT HAD ONE EPISODE OF EMESIS. DANIELLE DRAIN IN PLACE.
--- NOTE | 2020-12-11 14:04 | NUR ---
12/11/20 RD INITIAL ASSESSMENT COMPLETED PLEASE REFER TO NUTRITION ASSESSMENT UNDER CARE ACTIVITY FOR ESTIMATED NUTRITIONAL NEEDS. 1. RECOMMEND NPO FOR VOMITING 2. IF/WHEN MEDICALLY CLEARED ADVANCE TO CLEAR LIQUID DIET WITH ENSURE CLEAR TID 3. IF PATIENT IS UNABLE TO TOLERATE LIQUIDS CONSIDER TPN 4. RD TO FOLLOW-UP 2-3 DAYS, HIGH RISK JENNIFER QUINTERO RD
[2020-12-11] MEDS: ALBUTEROL SULFATE/IPRATROPIU 3 ML SOL IH PRN (14:33)
--- NOTE | 2020-12-11 14:59 | NUR ---
PATIENT AWAKE AND ALERT. BREATHING EVEN AND UNLABORED. ASSISTED PATIENT TO BATHROOM. PATIENT ONLY ABLE TO URINATE NO BM.
[2020-12-11 16:00] VITALS: BP 110/69
--- NOTE | 2020-12-11 16:54 | NUR ---
PATIENT AWAKE AND ALERT. NO ACUTE DISTRESS NOTED. PATIENT UPSET THAT SHE CAN EAT. REEDUCATED PATIENT TO WHAT DR. PERDOMO HAD TOLD HER. PATIENT VERBALIZE UNDERSTANDING. ALL SAFETY MEASURES IN PLACE.WILL CONTINUE TO MONITOR.
--- NOTE | 2020-12-11 18:30 | NUR ---
PATIENT SITTING UP IN A CHAIR. NO ACUTE DISTRESS NOTED. MOTHER AT BEDSIDE. DANIELLE DRAIN 30ML OUT. ALL SAFETY MEASURES IN PLACE. WILL CONTINUE TO MONITOR.
--- NOTE | 2020-12-11 19:15 | NUR ---
ENDORSED TO SPRAY PAINTER HELPER NURSE FOR CONTINUITY OF CARE. PATIENT STABLE. ALL SAFETY MEASURES IN PLACE.
--- NOTE | 2020-12-11 20:00 | NUR ---
PATIENT WAS RECEIVED IN BED AMBULATING TO THE BATHROOM WITH HER MOTHER BESIDE HER.
--- NOTE | 2020-12-11 21:00 | NUR ---
DUE MEDICATION GIVEN BY MOUTH TOLERATED WELL
[2020-12-11 22:00] VITALS: BP 123/72
--- NOTE | 2020-12-12 | NUR ---
PATIENT ASLEEP CALMLY NO S/S OF DISTRESS.
[2020-12-12] MEDS: PIPERACILLIN/TAZOBACTAM 4.5 GM in DEXTROSE 5% 100 ML IV SCH ×4 (00:50→18:33)
[2020-12-12] MEDS: ALBUTEROL SULFATE/IPRATROPIU 3 ML SOL IH SCH ×4 (01:21→20:05)
[2020-12-12] MEDS: MORPHINE SULFATE 4 MG/ML SYR IVP PRN ×3 (02:00→14:56)
--- NOTE | 2020-12-12 02:00 | NUR ---
PATIENT ASLEEP CALMLY NO S/S OF DISTRESS.
--- NOTE | 2020-12-12 04:00 | NUR ---
PATIENT ASLEEP CALMLY NO S/S OF DISTRESS.
--- NOTE | 2020-12-12 06:00 | NUR ---
PATIENT ASLEEP CALMLY NO S/S OF DISTRESS.
[2020-12-12 06:33] LABS: HEMATOCRIT 26.1 % (36-48); HEMOGLOBIN 8.6 g/dL (12.0-16.0); MEAN CORPUSCULAR HEMOGLOBIN 29 pg (27-31); MEAN CORPUSCULAR HGB CONC 33 g/dL (33-37); MEAN CORPUSCULAR VOLUME 87.7 fL (80-94); PLATELET COUNT (AUTO) 586 K/uL (140-450); RED BLOOD CELL COUNT(AUTO) 2.97 MIL/uL (4.20-5.40); RED CELL DISTRIBUTION WIDTH 13.1 % (11.6-13.7); WHITE BLOOD COUNT (AUTO) 19.6 K/uL (4.8-10.8)
[2020-12-12 07:16] LABS: ALBUMIN 1.7 g/dL (3.4-5.0); ANION GAP 10.7 (8-16); CARBON DIOXIDE 28.6 mmol/L (21-32); CREATININE 0.5 mg/dL (0.6-1.3); MAGNESIUM 1.9 mg/dL (1.8-2.4); POTASSIUM 3.3 mmol/L (3.5-5.1); TOTAL BILIRUBIN 0.5 mg/dL (0.0-1.0)
--- NOTE | 2020-12-12 07:56 | NUR ---
ALL REPORTS WERE GIVEN TO INCOMING RN, TRANSFER OF CARE ENDORSED.
[2020-12-12 08:00] VITALS: BP 120/78
--- NOTE | 2020-12-12 08:03 | NUR ---
PT RECEIVED FROM FUEL CELL TEST ENGINEER NURSE.
[2020-12-12] MEDS: DOXYCYCLINE 100 MG CAP PO SCH ×2 (08:23→20:17)
--- NOTE | 2020-12-12 08:29 | NUR ---
MEDICATIONS GIVEN PER MD ORDER. PT EDUCATED AND VERBALIZED UNDERSTANDING . NO S/SX OF DISTRESS AT THIS TIME. PT WENT RESTROOM IN BED. ONE LARGE BM LOSE AND BROWN /GREEN. AND URINE.
--- NOTE | 2020-12-12 08:36 | NUR ---
RT AT BEDSIDE
[2020-12-12] MEDS ORDERED: methylPREDNISolone 4 MG TAB PO ONE (09:00)
--- NOTE | 2020-12-12 09:10 | NUR ---
MEDICATIONS GIVEN PER MD ORDER. OT COMPLAINS OF PAIN PRN MEDICATION GIVEN . PT EDUCATED. PT COMPLAINS OF NAUSEA PRN MED GIVE. ALL SAFETY MEASURES FRANK BUI
[2020-12-12 09:11] LABS: EOSINOPHILS % (MANUAL) 1 % (0-4); LYMPHOCYTES % (MANUAL) 15 % (20-46); MONOCYTES % (MANUAL) 5 % (5-12)
--- NOTE | 2020-12-12 09:30 | NUR ---
PT IN BED RESTING , PT AMBULATED TO RESTROOM TOLERATED WELL IN CHAIR BY BED. WANTING TO GO AMBULATE BUT FEELS TO NAUSEOUS AT THIS TIME
[2020-12-12] MEDS: ONDANSETRON 4 MG/2 ML VIAL IVP PRN ×2 (09:33→15:01)
--- NOTE | 2020-12-12 10:24 | NUR ---
PT REASSESSED. PT STATES SHE FEELS BETTER. ALL SAFETY MEASURES ARE IN PLACE.
[2020-12-12] MEDS: NACL 0.9% 1,000 ML IV SCH ×2 (10:46→23:37)
--- NOTE | 2020-12-12 11:49 | NUR ---
WOUND CARE EVALUATION NOTE: REASON FOR EVALUATION: PELVIC ABSCESS WITH PERITONITIS S/P LAPAROTOMY SKIN ASSESSMENT DONE ON WITH THIS 25 Y/O PATIENT ADMITTED TO [facility] WITH PELVIC ABSCESS WITH PERITONITIS S/P LAPAROTOMY ON 12/08/2020. PT IS AAX4. AMBULATING TO BR, GOOD BED MOBILITY. POC DISCUSSED WITH WOUND CARE INSTRUCTIONS GIVEN AND DEMONSTRATION. PT. VERBALIZES UNDERSTANDING. PLAN OF CARE DISCUSSED WITH ECG TECHNICIAN REQUEST HOME HEALTH CARE. INTEGUMENTARY: -SURGICAL WOUND TO MID ABDOMINAL, [id number] WOUND BED 100% GRANULATING TISSUE, MODERATE AMOUNT SEROUS DRAINAGE, NO ODOR, WOUND EDGE WELL DEFINED, WITH ANNIKA-WOUND SKIN DRY AND INTACT. [address] AND SECURED WHICH MADE WOUND BED INTO MULTIPLE SEGMENTS. -RLQ DANIELLE DRAIN SECURED WITH SUTURE, MODERATE AMOUNT SEROSANGUINEOUS DRAINAGE OBSERVED. RECOMMENDATIONS: -CLEANSE MID ABDOMINAL WOUND WITH NS. PAT DRY PACK WITH ONE PIECE MOIST KERLIX ROLL AND COVER WITH ABD PAD DRESSING, SECURE WITH TAPE QD AND PRN IF SOILING -KEEP AREA DRY AND CLEAN AT ALL TIME -HOME HEALTH WOUND CARE CONTINUE TO FOLLOW UP ONCE PT. DISCHARGE AND PLEASE FOLLOW UP WITH SURGEON/PRIMARY PHYSICIAN 7-10 DAYS AFTER DISCHARGED PLEASE CONTACT WOUND CARE NURSE FOR ANY QUESTIONS AND CHANGES IN SKIN CONDITION.
--- NOTE | 2020-12-12 12:33 | NUR ---
MEDICATIONS GIVEN PER MD ORDER. PT TOLERATED WELL.
[2020-12-12] MEDS ORDERED: diphenhydrAMINE 50 MG/ML VIAL IVP SCH (13:00)
--- NOTE | 2020-12-12 14:10 | NUR ---
MOTHER AT BEDSIDE. ALL QUESTIONS ANSWERED.
[2020-12-12 16:00] VITALS: BP 101/62
--- NOTE | 2020-12-12 16:45 | NUR ---
PT AMBULATED TO RR INDEPENDENTLY , PT TOLERATED WELL. ABLE TO STAND FROM SITTING POSITION INDEPENDENTLY
--- NOTE | 2020-12-12 18:33 | NUR ---
PT RETURNED FROM CT. PT TOLERATED WELL. ALL VITALS WNL. MEDICATIONS GIVEN PER MD ORDER. PT EDUCATED AND VERBALIZED UNDERSTANDING
--- NOTE | 2020-12-12 19:20 | NUR ---
PT ENDORSED TO REGRIND MILL OPERATOR NURSE FOR CONTINUITY OF CARE. PT STABLE , VITAL SIGNS WNL.
--- NOTE | 2020-12-12 19:21 | NUR ---
RECD. SITTING ON CHAIR, AWAKE, A/OX4. RESPIRATION EVEN AND UNLABORED, O2 SATURATION 96% ON ROOM AIR. IV OF NS INFUSING AT 75 ML/HR LEFT AC G20. SURGICAL INCISION IN THE ABDOMEN COVERED WITH DRESSING AND ABDOMINAL BINDER DRY AND INTACT WITH 1 DANIELLE DRAINING MINIMAL AMOUNT OF SEROSANGUINEOUS FLUID. TOLERATING FULL LIQUID DIET, PASSING GAS AND HAD BM TODAY. ENCOURAGED TO AMBULATE MORE. DENIES PAIN 0/10.
[2020-12-12 20:00] VITALS: BP 116/68
--- NOTE | 2020-12-12 20:11 | NUR ---
PT WAS SEEN AND ASSESSED. PT ON ROOM AIR. SPO2 95%. PT TOLERATING WELL. NO SOB NOTED AT THIS TIME. HHN TX GIVEN. NO ADVERSE REACTION NOTED. WILL CONTINUE TO MONITOR PT.
--- NOTE | 2020-12-12 23:00 | NUR ---
WITH SMALL AMOUNT OF LOOSE BM AND VOIDED IN HER UNDERWEAR. CLEANSED AND PUT ON DIAPER TO AVOID GOWN FROM GETTING WET. MADE COMFORTABLE IN BED WITH PILLOWS.
[2020-12-13] VITALS: BP 122/68
[2020-12-13] MEDS: MORPHINE SULFATE 4 MG/ML SYR IVP PRN ×3 (00:48→23:44)
[2020-12-13] MEDS: ONDANSETRON 4 MG/2 ML VIAL IVP PRN ×2 (00:51→23:38)
[2020-12-13] MEDS: PIPERACILLIN/TAZOBACTAM 4.5 GM in DEXTROSE 5% 100 ML IV SCH ×4 (00:53→23:38)
[2020-12-13] MEDS: ALBUTEROL SULFATE/IPRATROPIU 3 ML SOL IH SCH ×4 (00:58→19:19)
--- NOTE | 2020-12-13 01:00 | NUR ---
SLEEPING COMFORTABLY IN BED.
--- NOTE | 2020-12-13 04:00 | NUR ---
DIAPER CHANGED, HAD LARGE AMOUNT OF VOIDED URINE. CLEANSED AND MADE COMFORTABLE IN BED.
--- NOTE | 2020-12-13 06:00 | NUR ---
TOLERATED ALL ANTIBIOTICS GIVEN DURING THE SHIFT BY DINO LAU. COMPLAINT OF PAIN ATTENDED PROMPTLY, MEDICATED PER MD ORDER.
[2020-12-13 06:08] LABS: BASOPHILS % (AUTO) 0.1 % (0.0-2.0); EOSINOPHILS # (AUTO) 0.3 K/uL (0-0.4); EOSINOPHILS % (AUTO) 2.2 % (0.0-4.0); HEMATOCRIT 24.5 % (36-48); LYMPHOCYTES # (AUTO) 2.7 K/uL (2.5-16.5); LYMPHOCYTES % (AUTO) 18.2 % (20.5-51.1); MEAN CORPUSCULAR HEMOGLOBIN 28 pg (27-31); MEAN CORPUSCULAR HGB CONC 33 g/dL (33-37); MEAN CORPUSCULAR VOLUME 87.1 fL (80-94); MONOCYTES # (AUTO) 1.2 K/uL (0.8-1.0); MONOCYTES % (AUTO) 7.8 % (1.7-9.3); NEUTROPHILS # (AUTO) 10.6 K/uL (1.8-7.7); NEUTROPHILS % (AUTO) 71.7 % (42.2-75.2); PLATELET COUNT (AUTO) 608 K/uL (140-450); RED BLOOD CELL COUNT(AUTO) 2.81 MIL/uL (4.20-5.40); RED CELL DISTRIBUTION WIDTH 13.5 % (11.6-13.7); WHITE BLOOD COUNT (AUTO) 14.8 K/uL (4.8-10.8)
[2020-12-13 06:20] LABS: ALBUMIN 1.6 g/dL (3.4-5.0); CARBON DIOXIDE 29.7 mmol/L (21-32); CREATININE 0.5 mg/dL (0.6-1.3); TOTAL BILIRUBIN 0.5 mg/dL (0.0-1.0)
[2020-12-13 07:02] LABS: POTASSIUM 2.7 mmol/L (3.5-5.1)
--- NOTE | 2020-12-13 07:25 | NUR ---
CONDITION REMAIN STABLE. ENDORSED TO AM SHIFT NURSE FOR CONTINUITY OF CARE.
[2020-12-13 08:00] VITALS: BP 111/67
--- NOTE | 2020-12-13 08:55 | NUR ---
PT COMPLAINS OF PAIN . PRN MEDICATION GIVEN BY MD ORDER. PT EDUCATED VERBALIZED UNDERSTANDING NO S/SX OF DISTRESS AT THIS TIME
[2020-12-13] MEDS ORDERED: methylPREDNISolone 4 MG TAB PO ONE (09:00)
[2020-12-13] MEDS ORDERED: POTASSIUM CHLORIDE 40 MEQ, LIDOCAINE MPF 1% 25 MG in NACL 0.9% 250 ML IV SCH (09:30)
--- NOTE | 2020-12-13 10:13 | NUR ---
PATIENT ON BED, MORNING MEDICATION WAS ADMINISTRATED, PATIENT GOT EDUCATED ABOUT HER MEDS, PATIENT TOLERATE MEDICATION WITH NO COMPLAINS. PATIENT COMPLAIENED ABOUT NAUSEA AND PAIN, PATIENT GOT HER PRN MEDS Addendum: 12/13/20 at 1023 by Rosetta Mathews RN RN CALL LIGHT WITHIN REACH, ALL SAFETY MEASURES IN PLACE.
--- NOTE | 2020-12-13 11:50 | NUR ---
PT AMBULATING AROUND UNIT TOLERATING WELL. ALL SAFTY MEASURES IN PLACE. PT HAS NON PATTERN PUNCHER SOCKS. EDUCATED TO ASK FRO ASSISTANC Adriana.
[2020-12-13] MEDS: NACL 0.9% 1,000 ML IV SCH (12:57)
[2020-12-13] MEDS: GAUZE TP SCH (13:00)
--- NOTE | 2020-12-13 13:55 | NUR ---
patient sitting on the chair, with no complais, safty measures on place,calls light within reach
--- NOTE | 2020-12-13 15:55 | NUR ---
PATIENT SETTING ON A CHAIR IN HER ROOM WITH A FAMILY MEMBER, NO COMPLAINS, SAFETY MEASURES IN PLACE
[2020-12-13 16:00] VITALS: BP 111/62
--- NOTE | 2020-12-13 17:55 | NUR ---
PATIENT RELAXED ON HER BED NO COMPLAINS, SAFETY MEASURES IN PLACE, CALLS LIGHT WITHIN REACH
--- NOTE | 2020-12-13 18:45 | NUR ---
PATIENT PULLED OUT HER IV WHILE TRYING TO WALK TO THE RESTROOM, PATIENT ASSESSED, NO COMPLAIN. IV SITE CLEANED, AND COVERED WITH A BANDAGE. SAFTY MEASURES ON PLACE, CALLS LIGHT WITHIN REACH.
--- NOTE | 2020-12-13 19:19 | NUR ---
PATIENT RELAXED ON HER BED, NO COMPLAINS , SAFTY MEASURES ON PLACE, CALLS LIGHT WITHIN REACH
--- NOTE | 2020-12-13 19:24 | NUR ---
PT WAS SEEN AND ASSESSED. PT ON ROOM AIR. SPO2 96%. PT TOLERATING WELL. NO SOB NOTED AT THIS TIME. HHN TX GIVEN. NO ADVERSE REACTION NOTED. WILL CONTINUE TO MONITOR PT.
--- NOTE | 2020-12-13 19:25 | NUR ---
bed side report given to fast food shift supervisor rn . endorsed iv and antibiotics. pt stable
[2020-12-13 21:30] VITALS: BP 111/65
[2020-12-14] MEDS: ALBUTEROL SULFATE/IPRATROPIU 3 ML SOL IH SCH ×4 (01:02→19:12)
[2020-12-14] MEDS: PIPERACILLIN/TAZOBACTAM 4.5 GM in DEXTROSE 5% 100 ML IV SCH ×5 (05:41→18:01)
[2020-12-14] MEDS: NACL 0.9% 1,000 ML IV SCH (05:42)
[2020-12-14 05:44] VITALS: BP 109/65
[2020-12-14] MEDS: ONDANSETRON 4 MG/2 ML VIAL IVP PRN (05:48)
[2020-12-14] MEDS: MORPHINE SULFATE 4 MG/ML SYR IVP PRN (05:49)
--- NOTE | 2020-12-14 07:30 | NUR ---
RECEIVED REPORT FROM MAINTENANCE TECHNICIAN 3RD SHIFT RN. PATIENT IS RESTING. RESPIRATIONS ARE EVEN AND UNLABORED. NO S/S OF DISTRESS. ALL SAFETY PRECAUTIONS IN PLACE. WILL CONTINUE TO MONITOR.
[2020-12-14 07:32] LABS: BASOPHILS % (AUTO) 0.4 % (0.0-2.0); EOSINOPHILS # (AUTO) 0.3 K/uL (0-0.4); EOSINOPHILS % (AUTO) 2.3 % (0.0-4.0); HEMATOCRIT 25.2 % (36-48); HEMOGLOBIN 8.3 g/dL (12.0-16.0); LYMPHOCYTES # (AUTO) 2.3 K/uL (2.5-16.5); LYMPHOCYTES % (AUTO) 18.6 % (20.5-51.1); MEAN CORPUSCULAR HEMOGLOBIN 28 pg (27-31); MEAN CORPUSCULAR HGB CONC 33 g/dL (33-37); MEAN CORPUSCULAR VOLUME 86.7 fL (80-94); MONOCYTES # (AUTO) 1.2 K/uL (0.8-1.0); MONOCYTES % (AUTO) 9.5 % (1.7-9.3); NEUTROPHILS # (AUTO) 8.5 K/uL (1.8-7.7); NEUTROPHILS % (AUTO) 69.2 % (42.2-75.2); PLATELET COUNT (AUTO) 681 K/uL (140-450); RED CELL DISTRIBUTION WIDTH 13.6 % (11.6-13.7); WHITE BLOOD COUNT (AUTO) 12.3 K/uL (4.8-10.8)
[2020-12-14 08:00] VITALS: BP 114/62
[2020-12-14 08:16] LABS: ALBUMIN 1.8 g/dL (3.4-5.0); ANION GAP 7.6 (8-16); CARBON DIOXIDE 30.4 mmol/L (21-32); CREATININE 0.5 mg/dL (0.6-1.3); TOTAL BILIRUBIN 0.4 mg/dL (0.0-1.0)
--- NOTE | 2020-12-14 09:45 | NUR ---
CHECKED ON PATIENT. PATIENT IS SITTING IN CHAIR AT BEDSIDE. PATIENT DOES NOT COMPLAIN OF ANY PAIN. NO S/S OF DISTRESS. ALL SAFETY PRECAUTIONS IN PLACE. WILL CONTINUE TO MONITOR.
--- NOTE | 2020-12-14 11:25 | NUR ---
CHECKED ON PATIENT. PATIENT DOES NO SHOW ANY S/S OF DISTRESS. ALL SAFETY PRECAUTIONS IN PLACE.
--- NOTE | 2020-12-14 13:06 | NUR ---
ADMINISTERED SCHEDULED MEDICATIONS. PATIENT VERBALIZED UNDERSTANDING. NO S/S OF DISTRESS. ALL SAFETY PRECAUTIONS IN PLACE.
[2020-12-14] MEDS: GAUZE TP SCH (13:12)
--- NOTE | 2020-12-14 15:22 | NUR ---
12/14/20 RD FOLLOW UP COMPLETED PLEASE REFER TO NUTRITION ASSESSMENT UNDER CARE ACTIVITY FOR ESTIMATED NUTRITIONAL NEEDS. 1. CONT. BLAND DIET/SOFT DIET TOLERATED 2. RECOMMEND ENSURE TID 3. RD TO FOLLOW-UP 5-7 DAYS, LOW RISK JENNIFER QUINTERO, RD
--- NOTE | 2020-12-14 15:45 | NUR ---
CHECKED ON PATIENT. PATIENT IS STABLE. NO S/S OF DISTRESS. ALL SAFETY PRECAUTIONS IN PLACE. WILL CONTINUE TO MONITOR.
[2020-12-14 16:00] VITALS: BP 103/56
--- NOTE | 2020-12-14 19:20 | NUR ---
RECEIVED REPORT FROM RACHEL RN. PT AAOX4, WATCHING TV. AT PRESENT VOICES NO C/O PAIN OR DISCOMFORT. RESP REG NON-LABORED, NAD NOTED.
[2020-12-14 20:16] VITALS: BP 108/61
[2020-12-15] MEDS: PIPERACILLIN/TAZOBACTAM 4.5 GM in DEXTROSE 5% 100 ML IV SCH ×2 (00:08→05:18)
[2020-12-15] MEDS: ALBUTEROL SULFATE/IPRATROPIU 3 ML SOL IH SCH ×4 (01:00→19:25)
--- NOTE | 2020-12-15 02:00 | NUR ---
ON ROUNDS PT ASLEEP, RESP REG NON-LABORED, NAD NOTED.
[2020-12-15] MEDS: ONDANSETRON 4 MG/2 ML VIAL IVP PRN (02:11)
[2020-12-15] MEDS: MORPHINE SULFATE 4 MG/ML SYR IVP PRN (02:11)
[2020-12-15 04:00] VITALS: BP 96/56
--- NOTE | 2020-12-15 07:30 | NUR ---
RECEIVED RE[ORT FROM DISASTER RECOVERY COORDINATOR. PATIENT RELAXED ON BED, NO COMPLAIN, SAFETY MEASURES ON PLACE, CALLS LIGHT WITHIN REACH
[2020-12-15 07:45] LABS: BASOPHILS # (AUTO) 0.1 K/uL (0.00-0.22); BASOPHILS % (AUTO) 0.4 % (0.0-2.0); EOSINOPHILS # (AUTO) 0.3 K/uL (0-0.4); EOSINOPHILS % (AUTO) 2.2 % (0.0-4.0); HEMATOCRIT 26.4 % (36-48); HEMOGLOBIN 8.7 g/dL (12.0-16.0); LYMPHOCYTES # (AUTO) 2.6 K/uL (2.5-16.5); LYMPHOCYTES % (AUTO) 18.9 % (20.5-51.1); MEAN CORPUSCULAR HEMOGLOBIN 28 pg (27-31); MEAN CORPUSCULAR HGB CONC 33 g/dL (33-37); MEAN CORPUSCULAR VOLUME 86.1 fL (80-94); MONOCYTES # (AUTO) 1.2 K/uL (0.8-1.0); MONOCYTES % (AUTO) 8.5 % (1.7-9.3); NEUTROPHILS # (AUTO) 9.6 K/uL (1.8-7.7); PLATELET COUNT (AUTO) 708 K/uL (140-450); RED BLOOD CELL COUNT(AUTO) 3.06 MIL/uL (4.20-5.40); RED CELL DISTRIBUTION WIDTH 13.6 % (11.6-13.7); WHITE BLOOD COUNT (AUTO) 13.7 K/uL (4.8-10.8)
[2020-12-15 07:51] LABS: ALBUMIN 1.9 g/dL (3.4-5.0); ANION GAP 9.4 (8-16); CREATININE 0.5 mg/dL (0.6-1.3); POTASSIUM 3.4 mmol/L (3.5-5.1); TOTAL BILIRUBIN 0.5 mg/dL (0.0-1.0)
[2020-12-15 08:00] VITALS: BP 96/56
--- NOTE | 2020-12-15 09:35 | NUR ---
PATIENT ON HER BED, ATE BREAKFAST, NO COMPLAINS, SAFETY MEASURES ON PLACE, CALLS LIGHT WITHIN REACH
--- NOTE | 2020-12-15 11:30 | NUR ---
PATIENT ON HER BED, ATE BREAKFAST, NO COMPLAINS, SAFETY MEASURES ON PLACE, CALLS LIGHT WITHIN REACH
--- NOTE | 2020-12-15 12:15 | NUR ---
PATIENT WALKING AROUND
[2020-12-15] MEDS: GAUZE TP SCH (13:09)
[2020-12-15] MEDS: PIPERACILLIN/TAZOBACTAM 3.375 GM in DEXTROSE 5% 50 ML IV SCH ×2 (13:15→21:02)
--- NOTE | 2020-12-15 13:30 | NUR ---
PATIENT SETTING ON BED , NO COMPLAINS, ATE LUNCH, MEDICATION WAS ADMINISTRATED ORDERED, NO REACTION, SAFETY MEAURES ON PLACE, CALLS LIGHT WITHIN REACH
--- NOTE | 2020-12-15 15:40 | NUR ---
PATIENT ON BED, NO COMPLAINS, SAFETY MEASURES ON PLACE, CALLS LIGHT WITHIN REACH
[2020-12-15 16:00] VITALS: BP 110/64
--- NOTE | 2020-12-15 17:00 | NUR ---
DR. PERDOMO AT BEDSIDE EXPLAINING NEXT PLAN OF CARE WITH PATEINT.
--- NOTE | 2020-12-15 19:30 | NUR ---
ENDORSED TO TEACHERS ASSISTANT NURSE FOR CONTINUITY OF CARE. PT IS STABLE
--- NOTE | 2020-12-15 19:31 | NUR ---
RECEIVED REPORT FROM AM NURSE. PATIENT IN BED RESTING. NO SIGNS OF DISTRESS. NO COMPLAINTS OF PAIN AT THIS TIME. ALL SAFETY PRECAUTIONS ARE IN PLACE. BED IN LOW POSITION. CALL LIGHT WITHIN REACH. WILL CONTINUE TO MONITOR.
--- NOTE | 2020-12-15 21:02 | NUR ---
ZOSYN GIVEN ORDERED.
[2020-12-16] VITALS: BP 100/62
[2020-12-16] MEDS: ALBUTEROL SULFATE/IPRATROPIU 3 ML SOL IH SCH ×2 (01:23→07:41)
--- NOTE | 2020-12-16 04:05 | NUR ---
PATIENT IS ASLEEP. NO SOB NOTED. CALL LIGHT WITHIN REACH.
[2020-12-16] MEDS: PIPERACILLIN/TAZOBACTAM 3.375 GM in DEXTROSE 5% 50 ML IV SCH (04:41)
[2020-12-16] MEDS: ACETAMINOPHEN 325 MG TAB PO PRN (05:20)
--- NOTE | 2020-12-16 07:23 | NUR ---
ENDORSED TO AM SHIFT NURSE FOR CONTINUITY OF CARE. PATIENT IS STABLE.
--- NOTE | 2020-12-16 07:25 | NUR ---
RECEIVED REPORT FROM REPAIR ARMATURE WINDER HELPER NURSE FOR CONTINUITY OF CARE. PT AAOX4, WATCHING TV. NO DISTRESS NOTED AND DENIES PAIN. PLAN OF CARE DISCUSSED. SAFETY PRECAUTIONS IN PLACE. WILL CONTINUE TO MONITOR.
[2020-12-16 07:53] LABS: BASOPHILS # (AUTO) 0.1 K/uL (0.00-0.22); BASOPHILS % (AUTO) 0.5 % (0.0-2.0); EOSINOPHILS # (AUTO) 0.2 K/uL (0-0.4); EOSINOPHILS % (AUTO) 2.1 % (0.0-4.0); HEMATOCRIT 24.2 % (36-48); HEMOGLOBIN 8.1 g/dL (12.0-16.0); LYMPHOCYTES # (AUTO) 1.6 K/uL (2.5-16.5); LYMPHOCYTES % (AUTO) 15.9 % (20.5-51.1); MEAN CORPUSCULAR HEMOGLOBIN 29 pg (27-31); MEAN CORPUSCULAR HGB CONC 34 g/dL (33-37); MEAN CORPUSCULAR VOLUME 86.9 fL (80-94); MONOCYTES # (AUTO) 0.8 K/uL (0.8-1.0); MONOCYTES % (AUTO) 8.4 % (1.7-9.3); NEUTROPHILS # (AUTO) 7.3 K/uL (1.8-7.7); NEUTROPHILS % (AUTO) 73.1 % (42.2-75.2); PLATELET COUNT (AUTO) 705 K/uL (140-450); RED BLOOD CELL COUNT(AUTO) 2.79 MIL/uL (4.20-5.40); RED CELL DISTRIBUTION WIDTH 13.8 % (11.6-13.7)
[2020-12-16 08:00] VITALS: BP 110/64
[2020-12-16] MEDS ORDERED: AMOX-1000 PO (08:39)
--- NOTE | 2020-12-16 09:30 | NUR ---
NO SCHEDULED MEDS GIVEN. PT IS STABLE. NO DISTRESS NOTED. WILL CONTINUE TO MONITOR.
[2020-12-16 10:33] VITALS: BP 110/64
--- NOTE | 2020-12-16 11:10 | NUR ---
DR. PERDOMO AT BEDSIDE ASSESSING ABDOMINAL WOUND. DR. PERDOMO CLEARED PATIENT FOR DISCHARGE TODAY.
--- NOTE | 2020-12-16 11:36 | NUR ---
ENDORSED DISCHARGE INSTRUCTIONS TO PATIENT. PATIENT VERBALIZED UNDERSTANDING AND SIGNED DISCHARGE FORMS. AWAITING FOR PATIENT'S MOM TO PICK HER UP.
--- NOTE | 2020-12-16 12:50 | NUR ---
PATIENT DISCHARGED OFF THE UNIT. PATIENT IV AND ID BAND REMOVED. WILL BE GOING HOME WITH DANIELLE DRAINAGE. PICKED UP BY FAMILY AT THE FRONT LOBBY. PT WAS STABLE PRIOR TO DISCHARGE.
[2020-12-16 13:59] LABS: ANION GAP 10.6 (8-16); CARBON DIOXIDE 27.8 mmol/L (21-32); CREATININE 0.6 mg/dL (0.6-1.3); POTASSIUM 3.4 mmol/L (3.5-5.1)
[2020-12-16 14:05] LABS: TOTAL BILIRUBIN 0.3 mg/dL (0.0-1.0)
== END 2020-12-16 12:52 | disposition home or self-care (01) | DRG 710 ==
LOC: MED 20:11 → MMU 12-05 07:08 → MTU 12-05 16:02 → MIC 12-07 23:45 → MTU 12-09 00:20
PROVIDERS: ADMIT Hospitalist; ATTEND Hospitalist
PROC: 0UB10ZZ Excision of Left Ovary, Open Approach (ICD-10-PCS; 2020-12-08)
PROC: 3E1M38Z Irrigation of Peritoneal Cavity using Irrigating Substance, Percutaneous Approach (ICD-10-PCS; 2020-12-08)
PROC: 0J9C00Z Drainage of Pelvic Region Subcutaneous Tissue and Fascia with Drainage Device, Open Approach (ICD-10-PCS; 2020-12-08)
PROC: 0WJG4ZZ Inspection of Peritoneal Cavity, Percutaneous Endoscopic Approach (ICD-10-PCS; 2020-12-08)
PROC: 0DTJ0ZZ Resection of Appendix, Open Approach (ICD-10-PCS; principal; 2020-12-08 07:00)
PROC: 0UB60ZZ Excision of Left Fallopian Tube, Open Approach (ICD-10-PCS; 2020-12-08 07:00)
DX: A41.59 Other Gram-negative sepsis (principal); D84.9 Immunodeficiency, unspecified; E44.1 Mild protein-calorie malnutrition; K35.20 Acute appendicitis with generalized peritonitis, without abscess; J45.909 Unspecified asthma, uncomplicated; N83.201 Unspecified ovarian cyst, right side; N39.0 Urinary tract infection, site not specified; N73.9 Female pelvic inflammatory disease, unspecified; Z20.822 Contact with and (suspected) exposure to COVID-19; Z91.012 Allergy to eggs; Z91.013 Allergy to seafood; Z83.3 Family history of diabetes mellitus; E87.6 Hypokalemia; N73.6 Female pelvic peritoneal adhesions (postinfective); Z68.22 Body mass index [BMI] 22.0-22.9, adult; K56.7 Ileus, unspecified; N70.92 Oophoritis, unspecified
CPT/HCPCS: 36415; 74018; 76830; 80048; 80053; 80305; 81001; 82272; 82374; 83690; 83735; 84100; 84703; 85018; 85025; 86886; 86900; 86901; 87040; 87081; 87086; 87491; 88304; 88305; 94640; 96361; 96372; 96374; 96375; 99285; J0330; J0696; J1100; J1170; J1200; J1885; J2001; J2060; J2185; J2270; J2405; J2543; J2704; J2710; J3010; J3480; J3490; J7030; J7060; J7120; J7509; J7613; Q0092

== ENCOUNTER 2022-01-05 01:27 | Emergency (ER) | payer OTHER ==
[~2022-01-05] VITALS: Ht 160 cm; Wt 52.6 kg
[~2022-01-05 01:27] MED LIST changes: -ALBU0.0912 INH; +AMOX-1000 PO; -BECL0.0458 INH; -HYDR-5080 PO; -OFLO5SOL LEFT EYE; -PRED20TA5 PO; -VALA1TAB40 PO
[2022-01-05 01:32] VITALS: BP 124/77
--- NOTE | 2022-01-05 01:39 | NUR ---
PT TO LOBBY
--- NOTE | 2022-01-05 02:55 | NUR ---
Patient being evaluated by physician at bedside.
[2022-01-05] MEDS ORDERED: ONDANSETRON 4 MG TAB PO ONE (04:10)
[2022-01-05] MEDS ORDERED: ONDA-188 SL (04:39)
[2022-01-05] MEDS ORDERED: NAPR-54 PO (04:39)
--- NOTE | 2022-01-05 04:40 | NUR ---
Patient discharged with v/s stable. Written and verbal after care instructions given and explained. Patient alert, oriented and verbalized understanding of instructions. Ambulatory with steady gait. All questions addressed prior to discharge. ID band removed. Patient advised to follow up with PMD. Rx of ZOFRAN AND NAPROSYN given. Patient educated on indication of medication including possible reaction and side effects. Opportunity to ask questions provided and answered.
== END 2022-01-05 04:40 | disposition home or self-care (01) ==
LOC: MED 01:27
DX: A08.4 Viral intestinal infection, unspecified (principal); J45.909 Unspecified asthma, uncomplicated; Z79.899 Other long term (current) drug therapy; Z98.890 Other specified postprocedural states
CPT/HCPCS: 99283; Q0162

== ENCOUNTER 2023-01-26 21:32 | Inpatient (IN) | payer OTHER ==
[~2023-01-26] VITALS: Ht 160 cm; Wt 54.9 kg
[~2023-01-26 21:32] MED LIST changes: +NAPR-54 PO; +ONDA-188 SL; +PRED20TA5 PO
[2023-01-26 22:09] VITALS: BP 102/71; PULSE 121; RESP 18; TEMP 97; O2SAT 98
[2023-01-26] MEDS ORDERED: ONDANSETRON 4 MG/2 ML VIAL IVP ONE (23:45)
[2023-01-26] MEDS ORDERED: KETOROLAC 30 MG/ML VIAL IVP ONE (23:45)
[2023-01-26 23:56] LABS: BASOPHILS # (AUTO) 0.1 K/uL (0.00-0.22); BASOPHILS % (AUTO) 0.5 % (0.0-2.0); EOSINOPHILS % (AUTO) 0.1 % (0.0-4.0); HEMATOCRIT 28.8 % (36-48); HEMOGLOBIN 9.1 g/dL (12.0-16.0); LYMPHOCYTES # (AUTO) 1.4 K/uL (2.5-16.5); LYMPHOCYTES % (AUTO) 5.7 % (20.5-51.1); MEAN CORPUSCULAR HEMOGLOBIN 23 pg (27-31); MEAN CORPUSCULAR HGB CONC 31 g/dL (33-37); MONOCYTES # (AUTO) 1.7 K/uL (0.8-1.0); MONOCYTES % (AUTO) 7.1 % (1.7-9.3); NEUTROPHILS # (AUTO) 20.6 K/uL (1.8-7.7); NEUTROPHILS % (AUTO) 86.6 % (42.2-75.2); PLATELET COUNT (AUTO) 559 K/uL (140-450); RED CELL DISTRIBUTION WIDTH 16.2 % (11.6-13.7); WHITE BLOOD COUNT (AUTO) 23.8 K/uL (4.8-10.8)
[2023-01-27] VITALS (10 sets, daily range): BP systolic 91–97; BP diastolic 49–54; PULSE 90–115; RESP 14–19; TEMP 97.5–98.3; O2SAT 95–100
[2023-01-27 00:03] LABS: APPEARANCE,URINE CLOUDY (CLEAR); BILIRUBIN,URINE 2+ (NEGATIVE); BLOOD, URINE 2+ (NEGATIVE); COLOR,URINE YELLOW (YELLOW); LEUKOCYTE ESTERASE ,URINE 3+ (NEGATIVE); NITRITE, URINE POSITIVE (NEGATIVE); PROTEIN,URINE 3+ (NEGATIVE); UGLUCOSE NEGATIVE (NEGATIVE)
[2023-01-27 00:05] LABS: ICTOTEST POSITIVE (NEGATIVE)
[2023-01-27 00:06] LABS: BACTERIA,URINE >30 (MANY) /HPF (None Seen); MUCUS,URINE 1+ /LPF (None Seen); RBC,URINE TOO NUMEROUS TO COUN /HPF (0-5); SQUAMOUS EPITHELIAL CELL,UR 0-3 (FEW) /LPF (0-3 (FEW)); WBC,URINE 60-80 /HPF (0-5)
[2023-01-27] MEDS ORDERED: NACL 0.9% 1,000 ML IV ONE ×2 (00:15→06:50)
[2023-01-27 00:18] LABS: ANION GAP 13.6 (8-16); CALCIUM 8.9 mg/dL (8.5-10.1); CARBON DIOXIDE 24.9 mmol/L (21-32); CREATININE 1.2 mg/dL (0.6-1.3); POTASSIUM 3.5 mmol/L (3.5-5.1); TOTAL BILIRUBIN 1.2 mg/dL (0.0-1.0); TOTAL PROTEIN, SERUM 8.5 g/dL (6.4-8.2)
[2023-01-27 01:10] LABS: LACTIC ACID 1.6 mmol/L (0.4-2.0)
[2023-01-27] MEDS ORDERED: ONDANSETRON 4 MG/2 ML VIAL ONE ×2 (01:26→04:43)
[2023-01-27] MEDS ORDERED: KETOROLAC 15 MG/ML VIAL ONE (01:26)
[2023-01-27] MEDS ORDERED: ALBUTEROL SULFATE/IPRATROPIU 3 ML SOL IH ONE (01:35)
[2023-01-27] MEDS ORDERED: cefTRIAXone 1,000 MG VIAL ONE (01:36)
[2023-01-27] MEDS ORDERED: MORPHINE SULFATE 4 MG/ML SYR IVP ONE (04:35)
[2023-01-27] MEDS ORDERED: ONDANSETRON 4 MG/2 ML VIAL IVP ONE (04:50)
[2023-01-27] MEDS ORDERED: ALBUTEROL HFA MDI 90 MCG/ACTUATION 8 GM INH PRN ×2 (07:40→07:50)
[2023-01-27] MEDS: NACL 0.9% 1,000 ML IV SCH ×2 (09:11→16:45)
[2023-01-27] MEDS: HYDROcodone/APAP 5/325 MG 1 TAB TAB PO PRN ×2 (12:48→20:05)
[2023-01-27] MEDS: ALBUTEROL 0.083% 2.5 MG/3 ML NEBU INH PRN ×2 (15:02→18:31)
[2023-01-27] MEDS: ACETAMINOPHEN 325 MG TAB PO PRN (18:14)
[2023-01-27] MEDS: BUDESONIDE 0.25 MG/2 ML NEBU INH SCH (18:42)
[2023-01-28] VITALS (11 sets, daily range): BP systolic 97–102; BP diastolic 56–67; PULSE 70–98; RESP 14–20; TEMP 97.9–98.4; O2SAT 95–100
[2023-01-28] MEDS: NACL 0.9% 1,000 ML IV SCH ×3 (02:04→22:58)
[2023-01-28] MEDS: ALBUTEROL 0.083% 2.5 MG/3 ML NEBU INH PRN ×4 (02:19→19:40)
[2023-01-28] MEDS: HYDROcodone/APAP 5/325 MG 1 TAB TAB PO PRN ×3 (02:58→13:29)
[2023-01-28 06:57] LABS: BASOPHILS # (AUTO) 0.1 K/uL (0.00-0.22); BASOPHILS % (AUTO) 0.4 % (0.0-2.0); EOSINOPHILS # (AUTO) 0.1 K/uL (0-0.4); EOSINOPHILS % (AUTO) 0.3 % (0.0-4.0); HEMATOCRIT 22.1 % (36-48); LYMPHOCYTES # (AUTO) 1.3 K/uL (2.5-16.5); LYMPHOCYTES % (AUTO) 7.1 % (20.5-51.1); MEAN CORPUSCULAR HEMOGLOBIN 23 pg (27-31); MEAN CORPUSCULAR HGB CONC 32 g/dL (33-37); MEAN CORPUSCULAR VOLUME 71.7 fL (80-94); MONOCYTES # (AUTO) 1.4 K/uL (0.8-1.0); MONOCYTES % (AUTO) 7.3 % (1.7-9.3); NEUTROPHILS # (AUTO) 15.9 K/uL (1.8-7.7); NEUTROPHILS % (AUTO) 84.9 % (42.2-75.2); PLATELET COUNT (AUTO) 378 K/uL (140-450); RED BLOOD CELL COUNT(AUTO) 3.07 MIL/uL (4.20-5.40); RED CELL DISTRIBUTION WIDTH 16.1 % (11.6-13.7); WHITE BLOOD COUNT (AUTO) 18.8 K/uL (4.8-10.8)
[2023-01-28 07:06] LABS: ALBUMIN 1.9 g/dL (3.4-5.0); CALCIUM 7.7 mg/dL (8.5-10.1); CARBON DIOXIDE 23.2 mmol/L (21-32); CREATININE 0.8 mg/dL (0.6-1.3); POTASSIUM 3.2 mmol/L (3.5-5.1); TOTAL BILIRUBIN 0.5 mg/dL (0.0-1.0); TOTAL PROTEIN, SERUM 6.1 g/dL (6.4-8.2)
[2023-01-28 07:35] LABS: HEMOGLOBIN 7.1 g/dL (12.0-16.0)
[2023-01-28] MEDS: BUDESONIDE 0.25 MG/2 ML NEBU INH SCH ×2 (08:12→19:44)
[2023-01-28] MEDS: POTASSIUM CHLORIDE 10 MEQ TABER PO PRN (09:04)
[2023-01-28] MEDS: SODIUM FERRIC GLUCONATE 125 MG in NACL 0.9% 100 ML IV SCH (09:07)
[2023-01-28] MEDS: ONDANSETRON 4 MG/2 ML VIAL IVP PRN (19:45)
[2023-01-28] MEDS: MORPHINE SULFATE 4 MG/ML SYR IVP PRN (20:31)
[2023-01-28] MEDS: ACETAMINOPHEN 325 MG TAB PO PRN (22:40)
[2023-01-28 22:46] LABS: HEMATOCRIT 29.9 % (36-48); HEMOGLOBIN 9.5 g/dL (12.0-16.0)
[2023-01-29] VITALS (12 sets, daily range): BP systolic 95–114; BP diastolic 59–72; PULSE 77–94; RESP 16–19; TEMP 97.4–97.9; O2SAT 95–100
[2023-01-29] MEDS: ONDANSETRON 4 MG/2 ML VIAL IVP PRN ×4 (00:34→20:47)
[2023-01-29] MEDS: MORPHINE SULFATE 4 MG/ML SYR IVP PRN ×5 (00:34→20:47)
[2023-01-29] MEDS: ALBUTEROL 0.083% 2.5 MG/3 ML NEBU INH PRN (01:13)
[2023-01-29] MEDS ORDERED: ALBUTEROL 0.083% 2.5 MG/3 ML NEBU INH PRN (06:25)
[2023-01-29 06:31] LABS: ANION GAP 10.1 (8-16); CALCIUM 7.9 mg/dL (8.5-10.1); CARBON DIOXIDE 24.4 mmol/L (21-32); CREATININE 0.8 mg/dL (0.6-1.3); POTASSIUM 3.5 mmol/L (3.5-5.1)
[2023-01-29 06:43] LABS: BASOPHILS % (AUTO) 0.4 % (0.0-2.0); EOSINOPHILS # (AUTO) 0.2 K/uL (0-0.4); EOSINOPHILS % (AUTO) 1.4 % (0.0-4.0); HEMATOCRIT 26.9 % (36-48); HEMOGLOBIN 8.6 g/dL (12.0-16.0); LYMPHOCYTES % (AUTO) 17.7 % (20.5-51.1); MEAN CORPUSCULAR HEMOGLOBIN 24 pg (27-31); MEAN CORPUSCULAR HGB CONC 32 g/dL (33-37); MEAN CORPUSCULAR VOLUME 75.5 fL (80-94); MONOCYTES # (AUTO) 1.1 K/uL (0.8-1.0); MONOCYTES % (AUTO) 9.7 % (1.7-9.3); NEUTROPHILS % (AUTO) 70.8 % (42.2-75.2); PLATELET COUNT (AUTO) 395 K/uL (140-450); RED BLOOD CELL COUNT(AUTO) 3.57 MIL/uL (4.20-5.40); RED CELL DISTRIBUTION WIDTH 19.2 % (11.6-13.7); WHITE BLOOD COUNT (AUTO) 11.2 K/uL (4.8-10.8)
[2023-01-29] MEDS: ALBUTEROL 0.083% 2.5 MG/3 ML NEBU INH SCH ×5 (07:41→22:39)
[2023-01-29] MEDS: BUDESONIDE 0.25 MG/2 ML NEBU INH SCH ×2 (07:42→19:30)
[2023-01-29] MEDS: NACL 0.9% 1,000 ML IV SCH ×2 (09:06→19:16)
[2023-01-29] MEDS: SODIUM FERRIC GLUCONATE 125 MG in NACL 0.9% 100 ML IV SCH (09:23)
[2023-01-29 09:49] LABS: INR 1.15 (0.8-1.2); PARTIAL THROMBOPLASTIN TIME 34.3 secs (22-35.6)
[2023-01-29] MEDS: ACETAMINOPHEN 325 MG TAB PO PRN (21:48)
[2023-01-30] VITALS (8 sets, daily range): BP systolic 112–125; BP diastolic 70–75; PULSE 79–96; RESP 16–19; TEMP 97–98.4; O2SAT 96–100
[2023-01-30] MEDS: ONDANSETRON 4 MG/2 ML VIAL IVP PRN ×5 (00:50→21:25)
[2023-01-30] MEDS: MORPHINE SULFATE 4 MG/ML SYR IVP PRN ×5 (00:51→21:26)
[2023-01-30] MEDS: ALBUTEROL 0.083% 2.5 MG/3 ML NEBU INH SCH ×6 (03:33→22:59)
[2023-01-30] MEDS: NACL 0.9% 1,000 ML IV SCH ×3 (05:33→21:12)
[2023-01-30] MEDS: BUDESONIDE 0.25 MG/2 ML NEBU INH SCH ×2 (08:03→19:16)
[2023-01-30 09:07] LABS: AFP (TUMOR MARKER) <1.8 ng/mL (0.0-4.7); LACTATE DEHYDROGENASE 122 IU/L (119-226)
[2023-01-30] MEDS: SODIUM FERRIC GLUCONATE 125 MG in NACL 0.9% 100 ML IV SCH (09:31)
[2023-01-30] MEDS ORDERED: fentaNYL citrate 0.05 MG/ML VIAL ONE (12:18)
[2023-01-30] MEDS ORDERED: diphenhydrAMINE 50 MG/ML VIAL ONE (12:18)
[2023-01-30] MEDS ORDERED: MIDAZOLAM 2 MG/2 ML VIAL ONE (12:18)
[2023-01-30] MEDS ORDERED: LIDOCAINE 1% 500 MG/50 ML VIAL ONE (12:20)
[2023-01-31] VITALS (7 sets, daily range): BP systolic 112–122; BP diastolic 71–75; PULSE 69–80; RESP 14–18; TEMP 97.5–98.3; O2SAT 95–100
[2023-01-31] MEDS: ONDANSETRON 4 MG/2 ML VIAL IVP PRN ×2 (01:52→08:39)
[2023-01-31] MEDS: MORPHINE SULFATE 4 MG/ML SYR IVP PRN ×2 (01:53→08:39)
[2023-01-31] MEDS: ALBUTEROL 0.083% 2.5 MG/3 ML NEBU INH SCH ×2 (03:02→07:37)
[2023-01-31 06:52] LABS: BASOPHILS # (AUTO) 0.1 K/uL (0.00-0.22); EOSINOPHILS # (AUTO) 0.2 K/uL (0-0.4); EOSINOPHILS % (AUTO) 2.6 % (0.0-4.0); HEMATOCRIT 28.6 % (36-48); HEMOGLOBIN 9.4 g/dL (12.0-16.0); LYMPHOCYTES # (AUTO) 2.4 K/uL (2.5-16.5); LYMPHOCYTES % (AUTO) 32.4 % (20.5-51.1); MEAN CORPUSCULAR HEMOGLOBIN 25 pg (27-31); MEAN CORPUSCULAR HGB CONC 33 g/dL (33-37); MEAN CORPUSCULAR VOLUME 75.4 fL (80-94); MONOCYTES # (AUTO) 0.9 K/uL (0.8-1.0); MONOCYTES % (AUTO) 12.8 % (1.7-9.3); NEUTROPHILS # (AUTO) 3.8 K/uL (1.8-7.7); NEUTROPHILS % (AUTO) 51.2 % (42.2-75.2); PLATELET COUNT (AUTO) 497 K/uL (140-450); RED CELL DISTRIBUTION WIDTH 19.2 % (11.6-13.7); WHITE BLOOD COUNT (AUTO) 7.4 K/uL (4.8-10.8)
[2023-01-31 07:11] LABS: ALBUMIN 2.1 g/dL (3.4-5.0); ANION GAP 11.2 (8-16); CALCIUM 8.7 mg/dL (8.5-10.1); CARBON DIOXIDE 28.9 mmol/L (21-32); CREATININE 0.7 mg/dL (0.6-1.3); MAGNESIUM 1.5 mg/dL (1.8-2.4); POTASSIUM 3.1 mmol/L (3.5-5.1); TOTAL BILIRUBIN 0.4 mg/dL (0.0-1.0)
[2023-01-31] MEDS: BUDESONIDE 0.25 MG/2 ML NEBU INH SCH (07:37)
[2023-01-31] MEDS: NACL 0.9% 1,000 ML IV SCH (07:54)
[2023-01-31] MEDS: POTASSIUM CHLORIDE 10 MEQ TABER PO PRN (08:08)
[2023-01-31] MEDS: SODIUM FERRIC GLUCONATE 125 MG in NACL 0.9% 100 ML IV SCH (08:40)
[2023-01-31] MEDS ORDERED: MAG SULF 2000 MG/WATER PREMIX 50 ML IV SCH (09:45)
[2023-01-31] MEDS ORDERED: ACET-9525 PO (10:47)
[2023-01-31] MEDS ORDERED: CIPR500T4 PO (10:47)
[2023-01-31] MEDS ORDERED: ALBUTEROL 0.083% 2.5 MG/3 ML NEBU INH SCH (13:00)
[2023-02-05 07:08] LABS: LD2 FRACTION 25 % (25-40); LD3 FRACTION 21 % (17-27); LD4 FRACTION 12 % (5-13)
[2023-02-06 16:50] LABS: INHIBIN A 12.9
[2023-02-09 17:47] LABS: INHIBIN B 77.9
== END 2023-01-31 16:08 | disposition home health service (06) | DRG 463 ==
LOC: MED 21:32 → MMU 01-27 06:47 → MTU 01-27 07:54
PROVIDERS: ADMIT Internal Medicine; ATTEND Internal Medicine
PROC: 30233N1 Transfusion of Nonautologous Red Blood Cells into Peripheral Vein, Percutaneous Approach (ICD-10-PCS; 2023-01-28)
PROC: BT41ZZZ Ultrasonography of Right Kidney (ICD-10-PCS; 2023-01-30)
PROC: BT111ZZ Fluoroscopy of Right Kidney using Low Osmolar Contrast (ICD-10-PCS; 2023-01-30)
PROC: 0T933ZZ Drainage of Right Kidney Pelvis, Percutaneous Approach (ICD-10-PCS; principal; 2023-01-30 10:00)
DX: N13.6 Pyonephrosis (principal); N17.9 Acute kidney failure, unspecified; E44.0 Moderate protein-calorie malnutrition; R65.10 Systemic inflammatory response syndrome (SIRS) of non-infectious origin without acute organ dysfunction; E87.1 Hypo-osmolality and hyponatremia; J45.909 Unspecified asthma, uncomplicated; N83.291 Other ovarian cyst, right side; E27.9 Disorder of adrenal gland, unspecified; D50.9 Iron deficiency anemia, unspecified; R19.09 Other intra-abdominal and pelvic swelling, mass and lump; Z88.8 Allergy status to other drugs, medicaments and biological substances; Z91.012 Allergy to eggs; Z90.49 Acquired absence of other specified parts of digestive tract; Z68.21 Body mass index [BMI] 21.0-21.9, adult
CPT/HCPCS: 36415; 50432; 76770; 76856; 80048; 80053; 81001; 82105; 82670; 83605; 83625; 83690; 83735; 84703; 85018; 85025; 85610; 85730; 86886; 86900; 86901; 86920; 87040; 87081; 87086; 94640; 96361; 96365; 96375; 99291; J0696; J1200; J1885; J2001; J2250; J2270; J2405; J2916; J3010; J3475; J3535; J7030; J7060; J7613; J7626; P9016; Q0092

== ENCOUNTER 2023-06-16 20:39 | Emergency (ER) | payer OTHER ==
[~2023-06-16] VITALS: Ht 160 cm; Wt 59.0 kg
[~2023-06-16 20:39] MED LIST changes: +ACET-9525 PO; -AMOX-1000 PO; +CIPR500T4 PO; -NAPR-54 PO; -ONDA-188 SL; -PRED20TA5 PO
[2023-06-16 21:02] VITALS: BP 121/77; PULSE 72; RESP 16; TEMP 97.9; O2SAT 100
[2023-06-16 21:23] LABS: APPEARANCE,URINE CLEAR (CLEAR); BILIRUBIN,URINE NEGATIVE (NEGATIVE); BLOOD, URINE NEGATIVE (NEGATIVE); COLOR,URINE YELLOW (YELLOW); LEUKOCYTE ESTERASE ,URINE TRACE (NEGATIVE); NITRITE, URINE NEGATIVE (NEGATIVE); PH,URINE 6.5 (5.0-9.0); PROTEIN,URINE 2+ (NEGATIVE); UGLUCOSE NEGATIVE (NEGATIVE); UROBILINOGEN,URINE 0.2 EU/dL (0.2 - 1)
[2023-06-16 21:27] LABS: BACTERIA,URINE 10-30 (MOD) /HPF (None Seen); MUCUS,URINE 1+ /LPF (None Seen); RBC,URINE 0-5 /HPF (0-5); SQUAMOUS EPITHELIAL CELL,UR 0-3 (FEW) /LPF (0-3 (FEW))
[2023-06-16 21:48] LABS: BASOPHILS # (AUTO) 0.1 K/uL (0.00-0.22); BASOPHILS % (AUTO) 0.8 % (0.0-2.0); EOSINOPHILS # (AUTO) 1.2 K/uL (0-0.4); EOSINOPHILS % (AUTO) 11.6 % (0.0-4.0); HEMATOCRIT 31.2 % (36-48); HEMOGLOBIN 10.2 g/dL (12.0-16.0); LYMPHOCYTES # (AUTO) 2.7 K/uL (2.5-16.5); LYMPHOCYTES % (AUTO) 26.6 % (20.5-51.1); MEAN CORPUSCULAR HEMOGLOBIN 27 pg (27-31); MEAN CORPUSCULAR HGB CONC 33 g/dL (33-37); MEAN CORPUSCULAR VOLUME 82.3 fL (80-94); MONOCYTES # (AUTO) 0.7 K/uL (0.8-1.0); MONOCYTES % (AUTO) 6.5 % (1.7-9.3); NEUTROPHILS # (AUTO) 5.5 K/uL (1.8-7.7); NEUTROPHILS % (AUTO) 54.5 % (42.2-75.2); PLATELET COUNT (AUTO) 442 K/uL (140-450); RED BLOOD CELL COUNT(AUTO) 3.79 MIL/uL (4.20-5.40); RED CELL DISTRIBUTION WIDTH 14.8 % (11.6-13.7); WHITE BLOOD COUNT (AUTO) 10.1 K/uL (4.8-10.8)
[2023-06-16 21:57] LABS: ANION GAP 10.4 (8-16); CALCIUM 8.7 mg/dL (8.5-10.1); CARBON DIOXIDE 31.2 mmol/L (21-32); CREATININE 1.5 mg/dL (0.6-1.3); POTASSIUM 3.6 mmol/L (3.5-5.1)
[2023-06-16 22:03] LABS: ALBUMIN 3.5 g/dL (3.4-5.0); BILIRUBIN,DIRECT 0.1 mg/dL (0.0-0.3); TOTAL BILIRUBIN 0.4 mg/dL (0.0-1.0); TOTAL PROTEIN, SERUM 10.2 g/dL (6.4-8.2)
[2023-06-16] MEDS ORDERED: ACET-10509 PO (23:10)
[2023-06-16] MEDS ORDERED: CEPH-588 PO (23:10)
[2023-06-16] MEDS ORDERED: ALBU0.0912 INH (23:13)
[2023-06-16] MEDS ORDERED: PRON INH (23:13)
== END 2023-06-16 23:25 | disposition home or self-care (01) ==
LOC: MED 20:39
DX: N39.0 Urinary tract infection, site not specified (principal); J45.909 Unspecified asthma, uncomplicated; Z91.018 Allergy to other foods; Z79.899 Other long term (current) drug therapy
CPT/HCPCS: 36415; 80048; 80076; 81001; 81025; 83690; 85025; 87086; 93005; 99284